=== PATIENT | female | born 1945 | race Caucasian/White ===

== ENCOUNTER → 2017-04-07 14:45 | Outpatient (POV) | payer MEDICARE, MEDICAID, SELFPAY | PROVIDERS: Visit Provider Physician Assistant | DX: Z00.00 Encounter for general adult medical examination without abnormal findings (principal) ==

== ENCOUNTER → 2017-05-23 10:22 | Outpatient (CLI) | payer MEDICARE, MEDICAID, SELFPAY | PROVIDERS: Visit Provider Physician Assistant | DX: R50.9 Fever, unspecified (principal); R61 Generalized hyperhidrosis | CPT/HCPCS: 87275; 87276 ==

== ENCOUNTER → 2017-12-23 14:47 | Outpatient (POV) | payer MEDICARE, MEDICAID, SELFPAY | PROVIDERS: PCP Family Medicine; Visit Provider Dermatology | DX: Z00.00 Encounter for general adult medical examination without abnormal findings (principal) ==

== ENCOUNTER → 2018-07-15 09:34 | Outpatient (CLI) | payer MEDICARE, MEDICAID, SELFPAY ==
--- NOTE | 2018-07-15 09:39 | CA_ITS ---
PROCEDURE: 2-D M-mode and color Doppler study INDICATIONS FOR THE TEST: Chest pain COPD Heart Murmur Tobacco Smoking Palpitations Fatigue Syncope Edema Hypertension+Diabetes Mellitus+ Rheumatic Fever SOB REDMAN Obesity Hyperlipidemia+ Family History HD Additional History abn ekg,cad PATIENT INFORMATION HEIGHT: 62 WEIGHT:142 GENDER: Female B/P:105/59 2-D/M-MODE INTERPRETATION: 2-D MEASUREMENTS OBSERVED VALUES IN CMS Right Ventricular Dimension (RVDd) 1.4 Interventricular Septum (Thickness)(IVsd) 0.9 Left Ventricular Internal Dimensions(LVIDd) 5.7 Left Ventricular Posterior Wall (Thickness)(LVPWd) 0.8 Aortic Root 2.5 Aortic Cusp Separation 1.8 Left Atrial Dimensions (LAD) 3.5 2D 1. Left Atrium is mildly enlarged, left ventricle is normal size, mild concentric left ventricular hypertrophy, visually estimated ejection fraction 55% with no regional wall motion abnormality. 2. The right atrium is mildly enlarged, left ventricle is normal size and contractility. 3. The aortic valve is minimally thickened and fibrosed. 4. The mitral and tricuspid valve leaflets are minimally thickened. 5. The pulmonic valve is poorly present. 6. No significant pericardial effusion noted. DOPPLER INTERROGATION: Doppler interrogation of the aortic, mitral and tricuspid valvular presence of mild mitral and tricuspid regurgitation, tricuspid regurgitation jet velocity is inadequate for calculation of the right ventricular systolic pressure, grade 1 diastolic dysfunction seen with tissue Doppler evidence of raised left atrial pressure. CONCLUSION: 1. Mild biatrial enlargement, normal left ventricular size, mild concentric left ventricular hypertrophy, visually estimated ejection fraction 55% with no regional wall motion abnormality, grade 1 diastolic dysfunction seen with tissue Doppler evidence of raised left atrial pressure. 2. Mild mitral and tricuspid regurgitation 3. No significant pericardial effusion noted.
--- NOTE | 2018-07-15 10:09 | NM_ITS ---
CARDIOLITE SPECT MYOCARDIAL PERFUSION LEXISCAN, REST AND STRESS: [facility] REVIEW QGS EF AND WALL MOTION EVALUATION: QPS - PERFUSION EVALUATION HISTORY: ABNORMAL EKG DOSE: 10.48 mCi technetium 99m mibi intravenously at rest followed by 32.8 mCi technetium 99m mibi following the intravenous ministration of 0.4 mg of Lexiscan. Resting blood pressure is 150/82. Stress blood pressure 129/72. FINDINGS: Ejection fraction is calculated to be 81% Uniform myocardial activity with both stress and rest gated images calculated ejection fraction of 81% with hyperdynamic wall motion IMPRESSION: No scintigraphic evidence of Lexiscan-induced myocardial ischemia normal ejection fraction normal wall motion
--- NOTE | 2018-07-15 12:25 | HMH.ITSHM ---
Current Home Medications as stated by this patient Judi Silver or education courses sales representative. []RIVAROXABAN RANITIDINE METFORMIN LOSARTAN HYDROCODONE FUROSEMIDE HYDROCHLOROTHIAZIDE GABAPENTIN DILTIAZEM VITAMIN D3 CETIRIZINE ATORVASTATIN
== END ==
PROVIDERS: PCP Family Medicine; Visit Provider Internal Medicine
DX: R94.31 Abnormal electrocardiogram [ECG] [EKG]; E11.8 Type 2 diabetes mellitus with unspecified complications; E78.49 Other hyperlipidemia; I11.9 Hypertensive heart disease without heart failure; I20.9 Angina pectoris, unspecified; I48.0 Paroxysmal atrial fibrillation; Z79.84 Long term (current) use of oral hypoglycemic drugs
CPT/HCPCS: 78452; 93017; 93306; A9502; J2785

== ENCOUNTER → 2019-01-06 13:43 | Outpatient (CLI) | payer MEDICARE, MEDICAID, SELFPAY ==
[2019-01-06 14:37] LABS: Basophils % 0.3 % (0.1-2.0); Eosinophils # 0.1 K/mm3 (0.0-0.4); Hematocrit 42.3 % (37.0-47.0); Hemoglobin 12.8 g/dL (12.2-16.2); Lymphocytes # 1.3 K/mm3 (0.7-4.5); Lymphocytes % 22.2 % (10-50); Mean Corpuscular HGB Conc 30.3 g/dL (31.8-35.4); Mean Corpuscular Hemoglobin 26.4 pg (27.0-31.2); Mean Corpuscular Volume 87.1 fl (81-99); Mean Platelet Volume 8.4 fl (7.4-10.4); Monocytes # 0.4 K/mm3 (0.1-1.0); Neutrophils # 4.3 K/mm3 (1.8-7.8); Neutrophils % 70.5 % (37.0-80.0); Platelet Count 215 K/mm3 (142-424); Red Blood Count 4.85 M/mm3 (4.20-5.40); Red Cell Distribution Width 16.3 % (11.5-17.5)
[2019-01-06 15:42] LABS: Anion Gap 11.9 mEq/L (5-15); Blood Urea Nitrogen 22 mg/dL (7-18); Calcium 9.3 mg/dL (8.5-10.1); Carbon Dioxide 34 mmol/L (21.0-32.0); Chloride 99 mmol/L (98-107); Creatinine,Serum 0.99 mg/dL (0.55-1.02); Estimated Glomerular Filt Rate 55 ml/min (>60); GFR (African American) 67 ML/MIN (>60); Glucose 164 mg/dL (74-106); Sodium 142 mmol/L (136-145)
[2019-01-06 15:51] LABS: Potassium 2.9 mmoL/L (3.5-5.1)
== END ==
PROVIDERS: Visit Provider Nurse Practitioner Family
DX: I48.0 Paroxysmal atrial fibrillation (principal); E11.8 Type 2 diabetes mellitus with unspecified complications; I25.10 Atherosclerotic heart disease of native coronary artery without angina pectoris; R94.31 Abnormal electrocardiogram [ECG] [EKG]; E78.49 Other hyperlipidemia; Z79.84 Long term (current) use of oral hypoglycemic drugs
CPT/HCPCS: 36415; 80048; 85025

== ENCOUNTER → 2019-01-14 13:54 | Outpatient (CLI) | payer MEDICARE, MEDICAID, SELFPAY ==
[2019-01-14 15:30] LABS: Anion Gap 13.3 mEq/L (5-15); Blood Urea Nitrogen 39 mg/dL (7-18); Carbon Dioxide 32 mmol/L (21.0-32.0); Chloride 100 mmol/L (98-107); Creatinine,Serum 1.47 mg/dL (0.55-1.02); Estimated Glomerular Filt Rate 35 ml/min (>60); GFR (African American) 42 ML/MIN (>60); Glucose 95 mg/dL (74-106); Potassium 4.3 mmoL/L (3.5-5.1); Sodium 141 mmol/L (136-145)
== END ==
PROVIDERS: Visit Provider Nurse Practitioner Family
DX: E11.9 Type 2 diabetes mellitus without complications (principal); E78.2 Mixed hyperlipidemia; E87.6 Hypokalemia; I25.10 Atherosclerotic heart disease of native coronary artery without angina pectoris; I48.0 Paroxysmal atrial fibrillation; Z79.84 Long term (current) use of oral hypoglycemic drugs
CPT/HCPCS: 36415; 80048

== ENCOUNTER → 2019-07-27 15:17 | Outpatient (POV) | payer MEDICARE, MEDICAID, SELFPAY | PROVIDERS: Visit Provider Physician Assistant | DX: Z00.00 Encounter for general adult medical examination without abnormal findings (principal) ==

== ENCOUNTER 2020-12-18 16:43 | Emergency (ER) | payer MEDICARE, MEDICAID, SELFPAY ==
[2020-12-18 16:43] VITALS: BP 155/78; PULSE 67; RESP 20; TEMP 36.4; O2SAT 93; BMI 27.1
--- NOTE | 2020-12-18 16:46 | CT_ITS ---
PROCEDURE INFORMATION: Exam: CT Angiography Head With Contrast, Arteriography Exam date and time: 12/18/20 04:46 PM Age: 75 years old Clinical indication: Dizziness and giddiness and headache and weakness; Patient HX: Weakness, dizzy, headache // nonsmoker TECHNIQUE: Imaging protocol: Computed tomography angiography of the head with contrast. Exam focused on the arteries. 3D rendering (Not supervised by radiologist): MIP and/or 3D reconstructed images were created by the technologist. Radiation optimization: All CT scans at this facility use at least one of these dose optimization techniques: automated exposure control; mA and/or kV adjustment per patient size (includes targeted exams where dose is matched to clinical indication); or iterative reconstruction. Contrast material: ISOVUE 370; Contrast volume: 100 ml; Contrast route: INTRAVENOUS (IV); COMPARISON: CT HEAD/BRAIN WO CON 12/18/20 06:09 PM FINDINGS: ANTERIOR CIRCULATION: Right internal carotid artery: Unremarkable. Intracranial segment is patent with no significant stenosis. No aneurysm. Right middle cerebral artery: Unremarkable. No occlusion or significant stenosis. No aneurysm. Right anterior cerebral artery: Unremarkable. No occlusion or significant stenosis. No aneurysm. Left internal carotid artery: Unremarkable. Intracranial segment is patent with no significant stenosis. No aneurysm. Left middle cerebral artery: Unremarkable. No occlusion or significant stenosis. No aneurysm. Left anterior cerebral artery: Unremarkable. No occlusion or significant stenosis. No aneurysm. POSTERIOR CIRCULATION: Right vertebral artery: Unremarkable. No occlusion or significant stenosis. No aneurysm. Left vertebral artery: Unremarkable. No occlusion or significant stenosis. No aneurysm. Basilar artery: Unremarkable. No occlusion or significant stenosis. No aneurysm. Right posterior cerebral artery: Unremarkable. No occlusion or significant stenosis. No aneurysm. Left posterior cerebral artery: Unremarkable. No occlusion or significant stenosis. No aneurysm. Brain: No definite mass, mass effect, or midline shift. Cerebral ventricles: No ventriculomegaly. Bones/joints: Unremarkable. No acute fracture. Soft tissues: Unremarkable. IMPRESSION: No large vessel stenosis or occlusion.
--- NOTE | 2020-12-18 16:46 | XR_ITS ---
PROCEDURE INFORMATION: Exam: XR Chest Exam date and time: 12/18/20 04:46 PM Age: 75 years old Clinical indication: Patient HX: Cough weakness and dizzy -- ordered chest xray and also angio head and neck TECHNIQUE: Imaging protocol: XR of the chest. Views: 1 view. COMPARISON: CR CXR CHEST(2 VIEWS-NOT PORTABLE) 01/14/17 02:02 PM FINDINGS: Lungs: Unremarkable. No consolidation. Pleural spaces: Unremarkable. No pleural effusion. No pneumothorax. Heart/Mediastinum: Unremarkable. No cardiomegaly. Bones/joints: Unremarkable. IMPRESSION: No acute findings.
--- NOTE | 2020-12-18 16:46 | CT_ITS ---
PROCEDURE INFORMATION: Exam: CT Angiography Neck With Contrast Exam date and time: 12/18/20 04:46 PM Age: 75 years old Clinical indication: Dizziness and giddiness and headache and weakness; Patient HX: Weakness, dizzy, headache // nonsmoker TECHNIQUE: Imaging protocol: Computed tomography angiography of the neck with contrast. 3D rendering (Not supervised by radiologist): MIP and/or 3D reconstructed images were created by the technologist. Radiation optimization: All CT scans at this facility use at least one of these dose optimization techniques: automated exposure control; mA and/or kV adjustment per patient size (includes targeted exams where dose is matched to clinical indication); or iterative reconstruction. Contrast material: ISOVUE 370; Contrast volume: 100 ml; Contrast route: INTRAVENOUS (IV); COMPARISON: US CV/CAROTID DUPLEX 12/05/14 01:11 PM FINDINGS: Right common carotid artery: No stenosis. No dissection or occlusion. Right internal carotid artery: No stenosis of the extracranial segment. No dissection or occlusion. Right external carotid artery: No occlusion or stenosis of the origin. Left common carotid artery: No stenosis. No dissection or occlusion. Left internal carotid artery: No stenosis of the extracranial segment. No dissection or occlusion. Left external carotid artery: No occlusion or stenosis of the origin. Right vertebral artery: No stenosis. No dissection or occlusion. Left vertebral artery: No stenosis. No dissection or occlusion. Thyroid: 2.5 x 2.0 cm heterogeneous enhancing left thyroid mass. Thyroid sonogram with possible biopsy recommended. Soft tissues: Normal. No significant soft tissue swelling. Bones/joints: No acute fracture. IMPRESSION: No hemodynamically significant extracranial cerebrovascular stenosis detected. COMMENTS: Consistent with the [employer]'s Incidental Findings Committee white paper (J Am Norman Radiol 2015): In patients aged 35 years and older with an incidental thyroid nodule equal to or greater than 1.[address], MRI or extrathyroidal US, further evaluation with dedicated thyroid US is recommended for patients with normal life expectancy and without comorbidities. For smaller nodules without suspicious features, no further evaluation or follow up is recommended. REFERENCES: NASCET CRITERIA. The degree of internal carotid artery stenosis is based on NASCET criteria. Normal is no stenosis. Mild is less than 50% stenosis. Moderate is 50-69% stenosis. Severe is 70% to 99% stenosis. Total occlusion is no detectable patent lumen.
--- NOTE | 2020-12-18 17:08 | ECG_ITS ---
APPROVED REPORT Exam: Resting ECG HR:62 bpm ECG Measurements Heart Rate 62 AXES NM 178 P 89 QRSd 84 QRS 8 QT 438 T 54 QTc 444 Conclusion Normal sinus rhythm Low voltage QRS Abnormal ECG Electronically signed by : Benigno Yanez MD 12/20/2020 21:09:44
[2020-12-18 17:17] LABS: Basophils % 0.4 % (0.1-2.0); Eosinophils # 0.1 K/mm3 (0.0-0.4); Hemoglobin 13.7 g/dL (12.2-16.2); Lymphocytes # 1.3 K/mm3 (0.7-4.5); Lymphocytes % 26.1 % (10-50); Mean Corpuscular HGB Conc 32.7 g/dL (31.8-35.4); Mean Corpuscular Hemoglobin 28.5 pg (27.0-31.2); Mean Corpuscular Volume 87.2 fl (81-99); Mean Platelet Volume 8.8 fl (7.4-10.4); Monocytes # 0.3 K/mm3 (0.1-1.0); Monocytes % 6.2 % (1.7-9.3); Neutrophils # 3.3 K/mm3 (1.8-7.8); Neutrophils % 66.2 % (37.0-80.0); Platelet Count 179 K/mm3 (142-424); Red Blood Count 4.81 M/mm3 (4.20-5.40); Red Cell Distribution Width 15.4 % (11.5-17.5); White Blood Count 4.9 K/mm3 (4.8-10.8)
[2020-12-18 17:23] LABS: Anion Gap 10.4 mEq/L (5-15); Blood Urea Nitrogen 18 mg/dl (7-17); Calcium 9.3 mg/dl (8.4-10.2); Carbon Dioxide 30 mmol/L (22.0-30.0); Chloride 103 mmol/L (98-107); Creatinine Clearance Estimated 52 mL/min (50-200); Estimated Glomerular Filt Rate 54 ml/min (>60); GFR (African American) 66 ML/MIN (>60); Glucose 124 mg/dl (74-100); Potassium 3.4 mmoL/L (3.5-5.1); Sodium 140 mmol/L (136-145)
[2020-12-18 17:47] LABS: Microscopic, Urine URINE MICROSCOPIC (MICROSCOPIC)
[2020-12-18 17:48] LABS: Appearance,Urine CLEAR (Clear); Bilirubin,Urine Negative (Negative); Blood, Urine Negative (Negative); Color,Urine YELLOW (Yellow); Glucose,Urine (UA) Negative (Negative); Ketones,Urine Negative (Negative); Leukocyte Esterase,Urine Negative (Negative); Nitrate,Urine Negative (Negative); Protein,Urine TRACE (Negative); Urobilinogen,Urine 0.2 EU/dl (0.2)
[2020-12-18 17:54] LABS: Thyroid Stimulating Hormone 5.21 uIU/mL (0.465-4.68)
[2020-12-18 18:02] LABS: Bacteria,Urine Trace /lpf; Squamous Epithelial Cell,Urine Occasional #/hpf (0-5)
--- NOTE | 2020-12-18 18:04 | CT_ITS ---
PROCEDURE INFORMATION: Exam: CT Head Without Contrast Exam date and time: 12/18/20 06:04 PM Age: 75 years old Clinical indication: Dizziness; Patient HX: Weakness, dizzy, headache // nonsmoker; Additional info: BURRELL TECHNIQUE: Imaging protocol: Computed tomography of the head without contrast. 3D rendering (Not supervised by radiologist): MIP and/or 3D reconstructed images were created by the technologist. Radiation optimization: All CT scans at this facility use at least one of these dose optimization techniques: automated exposure control; mA and/or kV adjustment per patient size (includes targeted exams where dose is matched to clinical indication); or iterative reconstruction. COMPARISON: No relevant prior studies available. FINDINGS: Brain: Normal. No hemorrhage. Unremarkable white matter. No mass effect. Cerebral ventricles: No ventriculomegaly. Paranasal sinuses: Visualized sinuses are unremarkable. No fluid levels. Mastoid air cells: Visualized mastoid air cells are well aerated. Bones/joints: Unremarkable. No acute fracture. Soft tissues: Unremarkable. IMPRESSION: No acute intracranial abnormality.
--- NOTE | 2020-12-18 18:46 | HMH.EDAMS ---
ED Disposition Clinical Impression: Altered mental status Qualifiers: Altered mental status type: disorientation Qualified Code(s): R41.0 - Disorientation, unspecified Disposition: Home, Self-Care Condition on Discharge: Good Instructions: DI for Altered Mental Status Referrals: Elver Weinberg MD [Primary Care Provider] - - Critical Care Critical Care Time: No Attestation: On 12/18/20, the high probability of a clinically significant, sudden or life threatening deterioration of the following system(s) required my full and direct attention, intervention and personal management. The time I documented below is in addition to time spent performing reported procedures but includes the following listed in this critical care notation. Medical Decision Making - Medical Records Medical records reviewed: Yes: I reviewed the patient's medical records. - Geraldo Inquiry Pt receiving controlled substance: No Vital Signs: 12/18/20 16:43 Temperature 97.5 F L Temperature Source Oral Pulse Rate [Left Radial] 67 Respiratory Rate 20 Blood Pressure [Right Arm] 155/78 H Blood Pressure Mean [Right Arm] 103 Blood Pressure Source [Right Arm] Automatic Cuff Blood Pressure Position [Right Arm] Sitting 02 Sat by Pulse Oximetry 93 L Oxygen Delivery Method Room Air - Lab Data Lab Results 12/18/20 16:55: WBC 4.9, RBC 4.81, Hgb 13.7, Hct 42.0, MCV 87.2, MCH 28.5, MCHC 32.7, RDW 15.4, Plt Count 179, MPV 8.8, Neut % (Auto) 66.2, Lymph % (Auto) 26.1, [place] % (Auto) 6.2, Eos % (Auto) 1.0, Baso % (Auto) 0.4, Neut # (Auto) 3.3, Lymph # (Auto) 1.3, [place] # (Auto) 0.3, Eos # (Auto) 0.1, Baso # (Auto) 0.0 12/18/20 16:55: Sodium 140, Potassium 3.4 L, Chloride 103, Carbon Dioxide 30, Anion Gap 10.4, BUN 18 H, Creatinine 1.00, Estimated Creat Clear 52, Estimated GFR 54 L, Est GFR ( Amer) 66, Glucose 124 H, Calcium 9.3, TSH 5.21 H 12/18/20 17:29: Urine Color Yellow, Urine Appearance Clear, Urine pH 7.0, Ur Specific [place] 1.020, Urine Protein Trace, Urine Glucose (UA) Negative, Urine Ketones Negative, Urine Blood Negative, Urine Nitrate Negative, Urine Bilirubin Negative, Urine Urobilinogen 0.2, Ur Leukocyte Esterase Negative, Urine RBC None, Urine WBC None, Ur Squamous Epith Cells Occasional, Urine Bacteria Trace Result diagrams: 12/18/20 16:55 12/18/20 16:55 Orders (Tests/Meds): ED MEDICATIONS Discontinued Medications Generic Name Dose Route Start Last Admin Trade Name Melissa PRN Reason Stop Dose Admin Iopamidol 100 ml 12/18/20 18:27 12/18/20 18:28 Iopamidol-370 (76%);100ml Bottle IV 12/18/20 18:28 100 ml ONCE ONE Administration Sodium Chloride 10 ml 12/18/20 18:27 12/18/20 18:28 Sodium Chloride 0.9% 10ml Syr (Rad Only) IV 12/18/20 18:28 10 ml ONCE ONE Administration - Radiology Data #1 Image(s): Chest Image Reviewed: Yes I reviewed the patient's radiology results, Yes I reviewed the patient's radiology image, Yes I have reviewed radiologist's interpretation Preliminary Findings: Normal/NAD - CT Data CT Scan: Head, C-Spine Time Received: 19:[address] Reviewed: Yes: I have reviewed the patient's CT results, I have viewed the radiologist's interpretation Findings Narrative: IMPRESSION: No large vessel stenosis or occlusion. IMPRESSION: No hemodynamically significant extracranial cerebrovascular stenosis detected. - ECG Data Tracing #1 I reviewed this ECG and interpreted as documented below: Normal jugular rate is 62 bpm, PA interval 170 ms, normal QTC. Sinus rhythm with nonspecific changes. ECG initial impression date: 12/18/20 ECG initial impression time: 17:08 - Reevaluation(s) Time: 19:13 Reevaluation #1: On reevaluation, patient appears to be at baseline. CTA was unremarkable for any occlusion or subarachnoid. Patient appears to have a transient amnestic event. There is no evidence of any further changes. Repeat neurologic exam is normal. Patient will follow
[2020-12-18 19:26] VITALS: BP 157/80; PULSE 73; RESP 15; TEMP 36.8; O2SAT 98
== END 2020-12-18 19:28 | disposition home or self-care (01) ==
PROVIDERS: Emergency Provider Emergency Medicine; PCP Family Medicine
DX: R41.0 Disorientation, unspecified (principal); E11.65 Type 2 diabetes mellitus with hyperglycemia; J44.9 Chronic obstructive pulmonary disease, unspecified; I48.0 Paroxysmal atrial fibrillation; I10 Essential (primary) hypertension; E78.5 Hyperlipidemia, unspecified; Z79.899 Other long term (current) drug therapy
CPT/HCPCS: 70450; 70496; 70498; 71045; 80048; 81001; 84443; 85025; 93005; 99283; Q9967

== ENCOUNTER → 2020-12-21 12:25 | Outpatient (CLI) | payer MEDICARE, MEDICAID, SELFPAY | PROVIDERS: PCP Family Medicine; Visit Provider Internal Medicine Cardiovascular Disease | DX: I48.0 Paroxysmal atrial fibrillation (principal) | CPT/HCPCS: 93225 ==

== ENCOUNTER → 2020-12-26 14:13 | Outpatient (CLI) | payer MEDICARE, MEDICAID, SELFPAY ==
--- NOTE | 2020-12-26 14:16 | CA_ITS ---
APPROVED REPORT EXAM: Comprehensive 2D, Doppler, and color-flow Echocardiogram Senior Product Integrity Engineer: Marya Cortez RDCS Ht: 5 ft 2 in Wt: 146lbs BSA: 1.67 BP: 170/82 mmHg Indications: TIA,AF,DO,HTN,HLP 2D Dimensions LVOT 1.91 cm (M/F) 1.5-2.5 M-Mode Dimensions RVDd 1.29 cm (0.9-2.6) LA Diam 3.19 cm (1.9-4.0) LVDd 5.12 cm (3.5-5.7) Ao Diam 3.07 cm (2.0-3.7) LVDs 3.38 cm (3.5-5.7) IVSd 1.17 cm (0.6-1.1) PWd 0.85 cm (0.6-1.1) EF (Teich) 62.50% FS 34.00% EDV (Teich) 124.90 mL TAPSE 2.30 (<1.7) ESV (Teich) 46.80 mL LV Diastology E Decel Time 240.00 (160-240 msec) E/A Ratio 0.9 MED E' 5.00 (< 7 cm/sec) E'/MED E' Ratio 16.92 (>14) LAT E' 5.20 (<10 cm/sec) E/LAT E' Ratio 16.27 (>14) Mitral Valve MV E Max Zechariah. 85.00 (40-130 cm/s) MV A Velocity 98.00 (40-130 cm/s) E/A Ratio 0.86 MV Decel. Time 240.00 (160-240 ms) MV PHT 70.00 ms Left Ventricle Left atrium is mildly enlarged, left ventricle is normal size, mild concentric left ventricular hypertrophy, visually estimated ejection fraction 55% with no regional wall motion abnormality, grade 1 diastolic dysfunction seen with tissue Doppler evidence of raise left atrial pressure. Right Ventricle Right atrium and right ventricle are normal size and contractility. Aortic Valve Aortic valve is minimally thickened and calcified without aortic stenosis or aortic insufficiency. Mitral Valve Mitral valve leaflets are minimally thickened, there is mild mitral regurgitation. Tricuspid Valve Tricuspid valve grossly normal, there is mild tricuspid regurgitation, tricuspid regurgitation jet velocity is inadequate for calculation of the right ventricular systolic pressure. Pulmonic Valve Pulmonic valve is poorly visualized. Great Vessels Aortic root is normal size. Inferior vena cava is normal size with normal inspiratory collapse. Pericardium No significant pericardial effusion noted Conclusion 1. Mildly enlarged left atrium, normal left ventricular size, mild concentric left ventricular hypertrophy, visually estimated ejection fraction 55% with no regional wall motion abnormality, grade 1 diastolic dysfunction seen with tissue Doppler evidence of raise left atrial pressure. 2. Mild mitral and tricuspid regurgitation. 3. No significant pericardial effusion noted. 4. Inferior vena cava is normal size with normal inspiratory collapse. Electronically signed by : Rafael Link MD 12/26/2020 22:23:07
--- NOTE | 2020-12-26 14:17 | CA_ITS ---
APPROVED REPORT Architectural Project Captain: MARIANNE Laterality: Bilateral Study Quality: Good Indications: TIA,AF,HTN,HLP,DM Doppler Spectral Velocity Analysis dICA (R) 80.00/15.70 cm/s dICA (L) 67.40/14.90 cm/s Brittney (R) 46.70/13.70 cm/s Brittney (L) 49.80/16.10 cm/s pICA (R) 48.20/10.50 cm/s pICA (L) 37.30/12.50 cm/s dCCA (R) 57.70/13.40 cm/s dCCA (L) 34.80/9.10 cm/s pCCA (R) 85.40/11.80 cm/s pCCA (L) 74.20/13.30 cm/s Vert (R) 39.00/10.30 cm/s Vert (L) 27.60/7.30 cm/s ICA/CCA 1.40 ICA/CCA 1.90 Findings Duplex evaluation demonstrates stenosis of the right proximal internal carotid artery <20% with PSV <140 cm/sec, EDV <100 cm/sec, and IC/CC Ratio <4.0.Duplex evaluation demonstrates stenosis of the left proximal internal carotid artery <20% with PSV <140 cm/sec, EDV <100 cm/sec, and IC/CC Ratio <4.0. Antegrade flow seen bilateral vertebral arteries. Conclusion Duplex evaluation demonstrates stenosis of the right proximal internal carotid artery <20% with PSV <140 cm/sec, EDV <100 cm/sec, and IC/CC Ratio <4.0.Duplex evaluation demonstrates stenosis of the left proximal internal carotid artery <20% with PSV <140 cm/sec, EDV <100 cm/sec, and IC/CC Ratio <4.0. Antegrade flow seen bilateral vertebral arteries. Electronically signed by : José Antonio Braswell MD 12/26/2020 18:00:40
== END ==
PROVIDERS: PCP Family Medicine; Visit Provider Family Medicine
DX: I65.23 Occlusion and stenosis of bilateral carotid arteries; I48.0 Paroxysmal atrial fibrillation
CPT/HCPCS: 93306; 93880

== ENCOUNTER → 2021-02-06 07:32 | Outpatient (CLI) | payer MEDICARE, MEDICAID, SELFPAY ==
--- NOTE | 2021-02-06 07:33 | CA_ITS ---
APPROVED REPORT Zinc Furnace Charger: MATTHEW Study Quality: Good Indications: htn Risk Factors Hypertension TIA/CVA History Renal Artery Doppler Origin (R) 130.0/ cm/sec Proximal (R) 93.4/ cm/sec Mid (R) 88.6/ cm/sec Distal (R) 106.9/ cm/sec Renal Aorta Ratio (R) 1.88 Segmental A. (R) / cm/sec RI: 0.73 Segmental A. Sup (R) 28.0/7.0 cm/sec Segmental A. Mid (R) 31.0/9.0 cm/sec Segmental A. Inf (R) 36.0/8.0 cm/sec Origin (L) 210.9/ cm/sec Proximal (L) 148.0/ cm/sec Mid (L) 135.8/ cm/sec Distal (L) 79.4/ cm/sec Renal Aorta Ratio (L) 3.05 Segmental A. (L) / cm/sec RI: 0.70 Segmental A. Sup (L) 31.0/9.0 cm/sec Segmental A. Mid (L) 27.0/7.0 cm/sec Segmental A. Inf (L) 22.0/8.0 cm/sec Renal Measurements Kidney Size (R) 9.3x4.0 cm Cortical Thickness (R) 1.1 cm Kidney Size (L) 8.7x4.1 cm Cortical Thickness (L) 1.1 cm Findings An attempt was made to evaluate the abdominal aorta, the right and left renal arteries and kidneys, utilizing duplex ultrasonography and color flow doppler. This was a technically difficult and therefore limited exam due to the presence of bowel gas and abdominal movement with respiration. The proximal abdominal aorta is patent without significant stenoses or dilatations. Multiple cystic structure observed in bilateral kidneys, the largest 1.8cm in the right kidney Duplex evaluation demonstrates greater than 60% stenosis of the left renal artery with PSV greater than 180 cm/s and/or Renal/Aortic ratio (RAR) greater than 3.5. Duplex evaluation demonstrates less than 60% stenosis of the right renal artery with PSV less than 180 cm/s and/or Renal/Aortic ratio (RAR) less than 3.5. Conclusion Duplex evaluation demonstrates greater than 60% stenosis of the left renal artery with PSV greater than 180 cm/s and/or Renal/Aortic ratio (RAR) greater than 3.5. Duplex evaluation demonstrates less than 60% stenosis of the right renal artery with PSV less than 180 cm/s and/or Renal/Aortic ratio (RAR) less than 3.5. Electronically signed by : José Antonio Braswell MD 02/08/2021 17:22:16
== END ==
PROVIDERS: PCP Family Medicine; Visit Provider Physician Assistant
DX: I10 Essential (primary) hypertension (principal)
CPT/HCPCS: 93976

== ENCOUNTER → 2021-02-13 11:15 | Outpatient (CLI) | payer MEDICARE, MEDICAID, SELFPAY ==
[2021-02-13 11:49] LABS: Blood Urea Nitrogen 19 mg/dl (7-17); Estimated Glomerular Filt Rate 61 ml/min (>60); GFR (African American) 74 ML/MIN (>60)
== END ==
PROVIDERS: Visit Provider Urology
DX: E78.5 Hyperlipidemia, unspecified (principal); I11.9 Hypertensive heart disease without heart failure; I25.10 Atherosclerotic heart disease of native coronary artery without angina pectoris; I48.0 Paroxysmal atrial fibrillation; I48.91 Unspecified atrial fibrillation; R94.31 Abnormal electrocardiogram [ECG] [EKG]; Z87.19 Personal history of other diseases of the digestive system
CPT/HCPCS: 36415; 82565; 84520

== ENCOUNTER → 2021-02-22 10:28 | Outpatient (CLI) | payer MEDICARE, MEDICAID, SELFPAY ==
--- NOTE | 2021-02-22 10:34 | CT_ITS ---
Procedure: CT ANGIO ABDOMEN CLINICAL HISTORY: abnl renal arterial duplex COMPARISON: CT ABDPELW/O CT ABD PELVIS W/O CONTRAST from 04/12/2016 TECHNIQUE: IV Contrast: 100ml Isovue 370 Axial images obtained with sagittal and coronal reformats. All CT scans at the facility use one or more dose reduction, viz: automated exposure control, ma/kV adjustment per patient size (including targeted exams where dose is matched to indication, i.e. head), or iterative reconstruction technique. FINDINGS: No evidence of aortic aneurysm. Scattered calcific plaque is present within the aorta and its branches. No celiac stenosis. Calcific plaque is present within the branches of the celiac artery. Calcific plaque is present at the ostium of the SMA without significant stenosis. The NEHA is patent. Calcific plaque is present at the proximal aspect of both renal arteries. There is a high-grade stenosis of the ostium of the right renal artery. The exact degree of stenosis is difficult to calculate but is felt to be greater than 75 percent. No significant stenosis of the left renal artery. There is calcific plaque at the distal aorta and proximal left common iliac artery 20 percent stenosis. Stable 6 mm nodule in the subpleural region of the right lower lobe. Upper abdominal images show contracted gallbladder. There is bilateral renal cortical thinning 1.9 cm isodense nodule is present along the upper pole of the right kidney. This nodule is indeterminate. There is an additional indeterminate nodule along the posterior aspect of the right kidney at 1.4 cm. There is a small exophytic right renal cyst anteriorly at 5 mm and also 1 inferiorly at 6 mm. Exophytic cyst noted along the lower pole of the left kidney at 6 mm. IMPRESSION: 1. High-grade stenosis of the ostium of the right renal artery at approximately 75 percent. No left renal artery stenosis evident. 2. Two indeterminate nodules of the right kidney. Recommend ultrasound to determine if these are cystic or solid. If solid or indeterminate then MRI may be needed for further evaluation. Dictated by: José Antonio Braswell MD 02/26/2021 11:26 José Antonio Braswell MD in [facility] 02/26/2021 11:26
== END ==
PROVIDERS: PCP Family Medicine; Visit Provider Urology
DX: I25.10 Atherosclerotic heart disease of native coronary artery without angina pectoris; I11.9 Hypertensive heart disease without heart failure; I48.0 Paroxysmal atrial fibrillation; E78.5 Hyperlipidemia, unspecified; R93.429 Abnormal radiologic findings on diagnostic imaging of unspecified kidney; R94.31 Abnormal electrocardiogram [ECG] [EKG]; Z87.19 Personal history of other diseases of the digestive system
CPT/HCPCS: 74175; Q9967

== ENCOUNTER 2021-03-05 08:45 | Day surgery (SDC) | payer MEDICARE, MEDICAID, SELFPAY ==
[2021-03-05] VITALS (18 sets, daily range): BP systolic 110–185; BP diastolic 65–104; PULSE 66–84; RESP 16–18; TEMP 36.8; O2SAT 93–100; BMI 26.6
--- NOTE | 2021-03-05 07:13 | IR_ITS ---
APPROVED REPORT Patient Location: Outpatient PROCEDURES Bilateral selective renal angiography INDICATION Abnormal renal duplex, Renovascular hypertension Informed consent was obtained prior to the procedure. COMPLICATIONS None Estimated Blood Loss: Less than 10 mls TECHNIQUE 1% lidocaine used to anesthetize the right femoral groin. The right femoral artery was accessed via the Seldinger technique. A 4 Tamazight sheath was placed in the right femoral artery. The JR4 catheter was used to selectively intubate each renal artery. At the end of the diagnostic angiogram the patient was transferred to the postop holding area in stable condition for sheath removal. ANGIOGRAPHIC RESULTS Right renal artery singular normal Left renal artery singular normal IMPRESSION Normal renal arteries PLAN 1. Treatment of hypertension Electronically signed by : Billy Ovalles MD 03/09/2021 12:19:25
[2021-03-05 08:34] LABS: Coronavirus 19, PCR Not Detected (NotDetected); Influenza A, PCR Not Detected (NotDetected); Influenza B, PCR Not Detected (NotDetected)
[2021-03-05 08:45] LABS: Basophils % 0.6 % (0.1-2.0); Eosinophils # 0.1 K/mm3 (0.0-0.4); Eosinophils % 2.7 % (0.1-12.0); Hematocrit 43.2 % (37.0-47.0); Lymphocytes # 1.4 K/mm3 (0.7-4.5); Lymphocytes % 26.5 % (10-50); Mean Corpuscular HGB Conc 32.5 g/dL (31.8-35.4); Mean Corpuscular Hemoglobin 28.6 pg (27.0-31.2); Mean Corpuscular Volume 87.8 fl (81-99); Mean Platelet Volume 7.9 fl (7.4-10.4); Monocytes # 0.4 K/mm3 (0.1-1.0); Monocytes % 8.4 % (1.7-9.3); Neutrophils # 3.1 K/mm3 (1.8-7.8); Neutrophils % 61.9 % (37.0-80.0); Platelet Count 183 K/mm3 (142-424); Red Blood Count 4.92 M/mm3 (4.20-5.40); Red Cell Distribution Width 14.5 % (11.5-17.5); White Blood Count 5.1 K/mm3 (4.8-10.8)
[2021-03-05 08:49] LABS: Chloride 105 mmol/L (98-107); Sodium 144 mmol/L (136-145)
[2021-03-05 08:50] LABS: Potassium 4.6 mmoL/L (3.5-5.1)
[2021-03-05 08:52] LABS: Anion Gap 10.6 mEq/L (5-15); Blood Urea Nitrogen 17 mg/dl (7-17); Carbon Dioxide 33 mmol/L (22.0-30.0); Creatinine Clearance Estimated 52 mL/min (50-200); Estimated Glomerular Filt Rate 61 ml/min (>60); GFR (African American) 74 ML/MIN (>60)
[2021-03-05 08:53] LABS: Calcium 9.7 mg/dl (8.4-10.2); Glucose 110 mg/dl (74-100)
--- NOTE | 2021-03-05 10:11 | US_ITS ---
PROCEDURE: US KIDNEY CLINICAL INDICATION: R93.429 - Abnormal radiologic findings on diagnostic imag... COMPARISON: US CA RENAL ARTERY DUPLEX from 02/06/[address] ANGIO ABDOMEN from 02/22/2021 XA CL RENAL ANGIOGRAM BI from 03/05/2021 FINDINGS: The right kidney is [id number]. There are least 3 cyst in the right kidney 2 in the lower pole at 8 and 14 mm. Upper pole renal cyst is present at 1.8 cm corresponding to the abnormality noted on CT scan. The left kidney is [id number]. There is some cortical scarring. A 1 cm cyst is present in the upper pole. A 2nd 1 cm cyst is present in the upper pole. IMPRESSION: Bilateral renal cysts. No suspicious solid renal lesions are evident. Mild cortical scarring of the left kidney. No hydronephrosis. Dictated by: José Antonio Braswell MD 03/05/2021 13:37 José Antonio Braswell MD in [facility] 03/05/2021 13:37
[2021-03-05 16:47] LABS: POC Glucose,Bedside 192 (70-110)
== END 2021-03-05 16:48 | disposition home or self-care (01) ==
LOC: CATHLAB 08:46
PROVIDERS: PCP Family Medicine; Visit Provider Internal Medicine
DX: I15.0 Renovascular hypertension; R93.421 Abnormal radiologic findings on diagnostic imaging of right kidney; I10 Essential (primary) hypertension; N28.89 Other specified disorders of kidney and ureter; I48.91 Unspecified atrial fibrillation; E11.9 Type 2 diabetes mellitus without complications; E78.2 Mixed hyperlipidemia; I48.0 Paroxysmal atrial fibrillation; I65.23 Occlusion and stenosis of bilateral carotid arteries; I25.10 Atherosclerotic heart disease of native coronary artery without angina pectoris; R06.00 Dyspnea, unspecified; R93.422 Abnormal radiologic findings on diagnostic imaging of left kidney; Z79.84 Long term (current) use of oral hypoglycemic drugs; Z79.899 Other long term (current) drug therapy
CPT/HCPCS: 36252; 36415; 76770; 80048; 82962; 85025; 99152; C1725; C1769; C9803; J1644; J2405; Q9967; U0003; U0005

== ENCOUNTER → 2022-01-02 10:47 | Outpatient (CLI) | payer MEDICARE, MEDICAID, SELFPAY ==
[2022-01-02 19:57] LABS: Basophils % 0.5 % (0.1-2.0); Eosinophils # 0.1 K/mm3 (0.0-0.4); Eosinophils % 1.7 % (0.1-12.0); Hematocrit 43.6 % (37.0-47.0); Hemoglobin 13.9 g/dL (12.2-16.2); Lymphocytes # 1.8 K/mm3 (0.7-4.5); Lymphocytes % 24.8 % (10-50); Mean Corpuscular HGB Conc 31.9 g/dL (31.8-35.4); Mean Corpuscular Hemoglobin 27.4 pg (27.0-31.2); Mean Platelet Volume 11.3 fl (7.4-10.4); Monocytes # 0.6 K/mm3 (0.1-1.0); Neutrophils # 4.7 K/mm3 (1.8-7.8); Platelet Count 210 K/mm3 (142-424); Red Blood Count 5.07 M/mm3 (4.20-5.40); Red Cell Distribution Width 15.5 % (11.5-17.5); White Blood Count 7.3 K/mm3 (4.8-10.8)
[2022-01-02 20:03] LABS: Alanine Aminotransferase 21 U/L (12-78); Albumin/Globulin Ratio 1.5 (1.1-1.8); Alkaline Phosphatase 143 U/L (38-126); Anion Gap 15.5 mEq/L (5-15); Aspartate Amino Transferase 35 U/L (14-36); Bilirubin,Total 0.5 mg/dl (0.2-1.3); Blood Urea Nitrogen 27 mg/dl (7-17); Calcium 9.8 mg/dl (8.4-10.2); Carbon Dioxide 29 mmol/L (22.0-30.0); Chloride 99 mmol/L (98-107); Chol/HDL Ratio 5.2 (1-3.5); Cholesterol 300 mg/dl (140-200); Estimated Glomerular Filt Rate 61 ml/min (>60); GFR (African American) 74 ML/MIN (>60); Globulin 2.7 g/dL (1.3-3.2); Glucose 115 mg/dl (74-100); HDL Cholesterol 58 mg/dl (40-60); Potassium 4.5 mmoL/L (3.5-5.1); Sodium 139 mmol/L (136-145); Total Protein,Serum 6.7 g/dl (6.3-8.2); Triglycerides 269 mg/dl (30-150); VLDL Cholesterol 54 mg/dL (0-40)
[2022-01-02 20:13] LABS: Direct LDL Cholesterol 183.93 mg/dL (100-129)
[2022-01-02 20:33] LABS: Thyroid Stimulating Hormone 4.06 uIU/mL (0.465-4.68)
[2022-01-02 21:25] LABS: Hemoglobin A1C 6.4 % (4.0-6.0)
== END ==
PROVIDERS: PCP Family Medicine; Visit Provider Family Medicine
DX: I25.10 Atherosclerotic heart disease of native coronary artery without angina pectoris (principal); Z00.00 Encounter for general adult medical examination without abnormal findings; I10 Essential (primary) hypertension; E11.9 Type 2 diabetes mellitus without complications; R53.83 Other fatigue; Z79.84 Long term (current) use of oral hypoglycemic drugs
CPT/HCPCS: 80053; 80061; 83036; 84443; 85025

== ENCOUNTER → 2022-04-08 11:19 | Outpatient (CLI) | payer MEDICARE, MEDICAID, SELFPAY ==
[2022-04-08 18:25] LABS: Creatinine,Urine Random 21 mg/dL (Not Estab.)
[2022-04-08 18:28] LABS: Microalbumin/Creatinine Ratio 718.5
== END ==
PROVIDERS: PCP Family Medicine; Visit Provider Family Medicine
DX: E11.9 Type 2 diabetes mellitus without complications (principal); Z79.84 Long term (current) use of oral hypoglycemic drugs
CPT/HCPCS: 82043; 82570

== ENCOUNTER → 2022-07-09 16:59 | Outpatient (CLI) | payer MEDICARE, MEDICAID, SELFPAY ==
[2022-07-09 18:18] LABS: Benzodiazepines Screen,Urine Negative ng/ml (<200)
[2022-07-09 18:19] LABS: Amphetamine/Metha Screen,Urine Negative ng/ml (<1000); Barbiturates Screen,Urine Negative ng/ml (<200)
[2022-07-09 18:20] LABS: Cannabinoid Screen,Urine Negative ng/ml (<50)
[2022-07-09 18:21] LABS: Cocaine Screen,Urine Negative ng/ml (<300); Methadone Screen,Urine Negative ng/ml (<300)
[2022-07-09 18:22] LABS: Opiate Screen,Urine Positive ng/ml (<300)
[2022-07-09 18:23] LABS: Phencyclidine Screen,Urine Negative ng/ml (<25)
[2022-07-09 19:40] LABS: Creatinine,Urine Random 22 mg/dL (Not Estab.)
== END ==
PROVIDERS: PCP Family Medicine; Visit Provider Family Medicine
DX: E11.9 Type 2 diabetes mellitus without complications (principal); M54.2 Cervicalgia; Z79.84 Long term (current) use of oral hypoglycemic drugs
CPT/HCPCS: 80305; 82043; 82570

== ENCOUNTER → 2022-07-12 16:11 | Outpatient (CLI) | payer MEDICARE, MEDICAID, SELFPAY ==
[2022-07-12 17:04] LABS: Basophils % 0.5 % (0.1-2.0); Eosinophils # 0.1 K/mm3 (0.0-0.4); Eosinophils % 2.5 % (0.1-12.0); Hematocrit 45.8 % (37.0-47.0); Hemoglobin 14.8 g/dL (12.2-16.2); Lymphocytes # 1.7 K/mm3 (0.7-4.5); Lymphocytes % 35.3 % (10-50); Mean Corpuscular HGB Conc 32.3 g/dL (31.8-35.4); Mean Corpuscular Hemoglobin 27.6 pg (27.0-31.2); Mean Corpuscular Volume 85.6 fl (81-99); Mean Platelet Volume 11.6 fl (7.4-10.4); Monocytes # 0.5 K/mm3 (0.1-1.0); Monocytes % 9.9 % (1.7-9.3); Neutrophils # 2.5 K/mm3 (1.8-7.8); Neutrophils % 51.9 % (37.0-80.0); Platelet Count 162 K/mm3 (142-424); Red Blood Count 5.36 M/mm3 (4.20-5.40); Red Cell Distribution Width 15.4 % (11.5-17.5); White Blood Count 4.8 K/mm3 (4.8-10.8)
[2022-07-12 17:08] LABS: Alanine Aminotransferase 19 U/L (12-78); Albumin Level 3.8 g/dl (3.5-5.0); Albumin/Globulin Ratio 1.5 (1.1-1.8); Alkaline Phosphatase 98 U/L (38-126); Anion Gap 10.6 mEq/L (5-15); Aspartate Amino Transferase 34 U/L (14-36); Bilirubin,Total 0.5 mg/dl (0.2-1.3); Blood Urea Nitrogen 21 mg/dl (7-17); Calcium 8.7 mg/dl (8.4-10.2); Carbon Dioxide 28 mmol/L (22.0-30.0); Chloride 106 mmol/L (98-107); Chol/HDL Ratio 6.2 (1-3.5); Cholesterol 320 mg/dl (140-200); Estimated Glomerular Filt Rate 70 ml/min (>60); GFR (African American) 84 ML/MIN (>60); Globulin 2.5 g/dL (1.3-3.2); Glucose 118 mg/dl (74-100); HDL Cholesterol 52 mg/dl (40-60); Potassium 4.6 mmoL/L (3.5-5.1); Sodium 140 mmol/L (136-145); Total Protein,Serum 6.3 g/dl (6.3-8.2); Triglycerides 259 mg/dl (30-150); VLDL Cholesterol 52 mg/dL (0-40)
[2022-07-12 18:12] LABS: Hemoglobin A1C 6.6 % (4.0-6.0)
[2022-07-12 19:12] LABS: Direct LDL Cholesterol 185.98 mg/dL (100-129)
== END ==
PROVIDERS: PCP Family Medicine; Visit Provider Family Medicine
DX: E11.9 Type 2 diabetes mellitus without complications (principal); Z00.00 Encounter for general adult medical examination without abnormal findings; I10 Essential (primary) hypertension; Z79.84 Long term (current) use of oral hypoglycemic drugs
CPT/HCPCS: 80053; 80061; 83036; 85025

== ENCOUNTER → 2022-07-12 16:12 | Outpatient (CLI) | payer MEDICARE, MEDICAID, SELFPAY | PROVIDERS: PCP Family Medicine; Visit Provider Family Medicine | DX: I10 Essential (primary) hypertension (principal) ==

== ENCOUNTER → 2022-09-13 10:13 | Outpatient (CLI) | payer MEDICARE, MEDICAID, SELFPAY ==
[2022-09-12 15:33] LABS: Basophils % 0.4 % (0.1-2.0); Eosinophils # 0.1 K/mm3 (0.0-0.4); Eosinophils % 1.8 % (0.1-12.0); Hematocrit 42.9 % (37.0-47.0); Hemoglobin 14.1 g/dL (12.2-16.2); Lymphocytes # 1.9 K/mm3 (0.7-4.5); Lymphocytes % 27.9 % (10-50); Mean Corpuscular HGB Conc 32.9 g/dL (31.8-35.4); Mean Corpuscular Volume 82.2 fl (81-99); Mean Platelet Volume 9.6 fl (7.4-10.4); Monocytes # 0.5 K/mm3 (0.1-1.0); Monocytes % 7.4 % (1.7-9.3); Neutrophils # 4.2 K/mm3 (1.8-7.8); Neutrophils % 62.6 % (37.0-80.0); Platelet Count 180 K/mm3 (142-424); Red Blood Count 5.22 M/mm3 (4.20-5.40); Red Cell Distribution Width 14.9 % (11.5-17.5); White Blood Count 6.7 K/mm3 (4.8-10.8)
[2022-09-12 15:34] LABS: Chloride 98 mmol/L (98-107); Potassium 3.7 mmoL/L (3.5-5.1); Sodium 141 mmol/L (136-145)
[2022-09-12 15:36] LABS: Bilirubin,Unconjugated 0.3 mg/dL (0.0-1.1); Blood Urea Nitrogen 23 mg/dl (7-17); Estimated Glomerular Filt Rate 61 ml/min (>60); GFR (African American) 74 ML/MIN (>60)
[2022-09-12 15:37] LABS: Alanine Aminotransferase 21 U/L (12-78); Albumin Level 3.9 g/dl (3.5-5.0); Alkaline Phosphatase 114 U/L (38-126); Anion Gap 14.7 mEq/L (5-15); Aspartate Amino Transferase 29 U/L (14-36); Bilirubin,Indirect 0.2 mg/dL (0.0-0.9); Bilirubin,Total 0.2 mg/dl (0.2-1.3); Calcium 9.1 mg/dl (8.4-10.2); Carbon Dioxide 32 mmol/L (22.0-30.0); Glucose 96 mg/dl (74-100); Magnesium 1.8 mg/dl (1.6-2.3); Total Protein,Serum 6.8 g/dl (6.3-8.2)
[2022-09-12 15:38] LABS: HDL Cholesterol 48 mg/dl (40-60)
[2022-09-12 15:45] LABS: Chol/HDL Ratio 6.7 (1-3.5); Cholesterol 320 mg/dl (140-200); Triglycerides 658 mg/dl (30-150)
[2022-09-12 15:48] LABS: Direct LDL Cholesterol 157.58 mg/dL (100-129)
[2022-09-12 15:57] LABS: Free T4 (Free Thyroxine) 1.04 ng/dl (0.78-2.19)
[2022-09-12 16:11] LABS: Thyroid Stimulating Hormone 4.45 uIU/mL (0.465-4.68)
[2022-09-13 12:17] LABS: Hemoglobin A1C 6.7 % (4.0-6.0)
== END ==
PROVIDERS: Physician Assistant; Visit Provider Nurse Practitioner
DX: R06.00 Dyspnea, unspecified; E11.9 Type 2 diabetes mellitus without complications; E78.2 Mixed hyperlipidemia; I11.9 Hypertensive heart disease without heart failure; I15.0 Renovascular hypertension; I25.10 Atherosclerotic heart disease of native coronary artery without angina pectoris; I48.0 Paroxysmal atrial fibrillation; R29.810 Facial weakness; R41.3 Other amnesia; R47.81 Slurred speech; R94.31 Abnormal electrocardiogram [ECG] [EKG]; E78.1 Pure hyperglyceridemia; Z79.84 Long term (current) use of oral hypoglycemic drugs
CPT/HCPCS: 36415; 80048; 80061; 80076; 83036; 83735; 84439; 84443; 85025

== ENCOUNTER 2022-09-19 12:42 | Emergency (ER) | payer MEDICARE, MEDICAID, SELFPAY ==
--- NOTE | 2022-09-19 12:45 | XR_ITS ---
FINAL REPORT CLINICAL HISTORY: PAIN IN RIGHT FOOT FINDINGS: RIGHT FOOT SERIES Three views of the right foot were obtained. There is no acute fracture or dislocation. There are minimal degenerative changes. There is no soft tissue abnormality. IMPRESSION: Minimal degenerative changes. Reviewed, Interpreted and Dictated by Topher Whitney III, MD Transcribed by Lexus Espinoza Authenticated and [facility]
[2022-09-19 13:05] VITALS: BP 158/88; PULSE 64; RESP 18; TEMP 36.6; O2SAT 98; BMI 27.3
--- NOTE | 2022-09-19 13:17 | EXP.UTC ---
Discharge Plan Disposition Patient Disposition: Home, Self-Care Condition: Good Prescriptions Prescriptions: New colchicine 0.6 mg capsule 0.6 mg PO DIRECTED Qty: 3 0RF Rx Instructions: Take 2 capsules (1.2mg) now Wait one hour then take 1 (0.6mg) capsule No Action aspirin [Adult Low Dose Aspirin] 81 mg tablet,delayed release (DR/EC) 81 mg PO DAILY betamethasone dipropionate 0.05 % cream 1 applic topical BID azelastine 205.5 mcg (0.15 %) spray,non-aerosol 1 spray intranasal BID Qty: 30 2RF Rx Instructions: administer into each nostril All Day Allergy (cetirizine) 10 mg capsule 10 mg PO DAILY PRN cholecalciferol (vitamin D3) 25 mcg (1,000 unit) capsule 25 mcg PO DAILY furosemide 40 mg tablet See Rx Instructions .Route .COMPLEX Qty: 180 3RF Rx Instructions: Take 2 tablets by mouth once daily metformin 500 mg tablet 1,000 mg PO BID Qty: 360 1RF metoprolol succinate 50 mg tablet extended release 24 hr 50 mg PO BID Qty: 180 5RF Eliquis 5 mg tablet 5 mg PO BID Qty: 60 5RF valsartan 320 mg tablet 320 mg PO DAILY Qty: 30 3RF fluticasone propionate [Flonase Allergy Relief] 50 mcg/actuation spray,suspension 2 spray intranasal BID Qty: 16 3RF Rx Instructions: administer into each nostril atorvastatin 40 mg tablet 40 mg PO HS Qty: 30 3RF gabapentin 600 mg tablet 300 mg PO BID Qty: 30 3RF hydrocodone-acetaminophen 5-325 mg tablet 1 tab PO BID PRN (Reason: pain) Qty: 60 0RF icosapent ethyl [Vascepa] 1 gram capsule 2 g PO BID Qty: 120 4RF Referrals Follow up/Referrals: Constantine Garland MD [Primary Care Provider] - See instructions Activity Restrictions/Add. Instructions Additional Instructions/Restrictions: Take medication as prescribed Follow up with your Family Doctor if no improvement or any worsening of symptoms Return if needed Straight to ER if any life threatening symptoms Clinical Impressions Clinical Impression: Gout Instructions Patient Instructions: DI for Gout, Gout Discharge ED [place] [facility] [place] General Stated complaint: RT foot pain no known accident Mode of Arrival: Ambulatory Source of Information: Patient Limitations: No Limitations Time Seen by Provider: 09/19/22 13:17 Description of Symptoms (Recalled from Triage Doc. by RN): PATIENT C/O RIGHT FOOT PAIN SINCE YESTERDAY. NO KNOWN INJURY HEENT Symptoms (Recalled from RN notes): No Resp Symptoms (Recalled from RN notes): No Skin Symptoms (Recalled from RN notes): No MS Symptoms (Recalled from RN notes): Yes Functional Status (Recalled from RN notes): WNL History of Present Illness Provider Complaint: Patient states that she noticed she was having pain in the side of her right foot States that she hasnt done anything that she is aware of Daughter states that she has had gout before not sure if that what could be causing her pain now but they wanted to get her checked Related Data Home Medications Medication Instructions Recorded Confirmed aspirin 81 mg tablet,delayed 81 mg PO DAILY heart health 05/25/19 09/12/22 release (Adult Low Dose Aspirin) cetirizine 10 mg capsule (All Day 10 mg PO DAILY PRN 10/05/21 09/12/22 Allergy (cetirizine)) cholecalciferol (vitamin D3) 25 25 mcg PO DAILY 10/05/21 09/12/22 mcg (1,000 unit) capsule betamethasone dipropionate 0.05 % 1 applic topical BID 07/09/22 09/12/22 topical cream Previous Rx's Medication Instructions Recorded furosemide 40 mg tablet See Rx Instructions .Route 10/05/21 .COMPLEX Fluid #180 tabs metformin 500 mg tablet 1,000 mg PO BID diabetes #360 tabs 10/05/21 fluticasone propionate 50 2 spray intranasal BID allergies 04/02/22 mcg/actuation nasal #16 grams spray,suspension (Flonase Allergy Relief) atorvastatin 40 mg tablet 40 mg PO HS #30 tabs 07/16/22 azelastine 205.5 mcg (0.15 %) 1 spray intranasal BID allergy 07/16/22 nasal sp
[2022-09-19 13:51] LABS: Uric Acid 9.4 mg/dl (2.5-6.2)
[2022-09-19 14:08] VITALS: BP 158/88; PULSE 64; RESP 18; TEMP 36.6; O2SAT 98
== END 2022-09-19 14:13 | disposition home or self-care (01) ==
PROVIDERS: Emergency Provider Nurse Practitioner; PCP Family Medicine
DX: M10.071 Idiopathic gout, right ankle and foot (principal); M79.671 Pain in right foot; I25.10 Atherosclerotic heart disease of native coronary artery without angina pectoris; I11.9 Hypertensive heart disease without heart failure; I48.0 Paroxysmal atrial fibrillation; E11.9 Type 2 diabetes mellitus without complications; E78.5 Hyperlipidemia, unspecified; Z79.84 Long term (current) use of oral hypoglycemic drugs
CPT/HCPCS: 73630; 84550; 99204; 99212; G0463

== ENCOUNTER → 2022-11-11 10:14 | Outpatient (CLI) | payer MEDICARE, MEDICAID, SELFPAY ==
--- NOTE | 2022-11-11 10:53 | MR_ITS ---
FINAL REPORT CLINICAL HISTORY: memory loss/facial droop/slurred speech. dizziness. FINDINGS: Multiplanar MR imaging of the brain was performed without and with contrast. There are extensive changes of chronic microvascular ischemia in the periventricular and subcortical white matter. There is no evidence of intracranial hemorrhage or mass. No abnormal extra-axial fluid collection is seen. The ventricular size is within normal limits. There is no evidence of shift of the midline structures. The posterior fossa and brainstem have an unremarkable appearance. No area of abnormal restricted diffusion is identified. No abnormal contrast enhancement is seen. There is extensive abnormal signal throughout the left maxillary sinus, ethmoid air cells and left frontal sinus. IMPRESSION: No acute intracranial abnormality identified. Chronic microvascular ischemic change. Extensive abnormal signal throughout the left maxillary sinus, ethmoid air cells and left frontal sinus consistent with chronic sinusitis. Reviewed, Interpreted and Dictated by Stevie Umanzor MD Transcribed by Michell Arias Authenticated and [facility]
[2022-11-11 11:02] LABS: Blood Urea Nitrogen 21 mg/dl (7-17); Estimated Glomerular Filt Rate 54 ml/min (>60); GFR (African American) 65 ML/MIN (>60)
== END ==
PROVIDERS: PCP Family Medicine; Visit Provider Physician Assistant
DX: R29.810 Facial weakness (principal); R41.3 Other amnesia; R47.81 Slurred speech
CPT/HCPCS: 36415; 70553; 82565; 84520; A9576

== ENCOUNTER → 2022-11-12 10:34 | Outpatient (POV) | payer MEDICARE, MEDICAID, SELFPAY | PROVIDERS: Visit Provider Dermatology | DX: Z00.00 Encounter for general adult medical examination without abnormal findings (principal) ==

== ENCOUNTER → 2023-01-10 09:54 | Outpatient (CLI) | payer MEDICARE, MEDICAID, SELFPAY ==
[2023-01-10 10:23] LABS: MANUAL DIFFERENTIAL MANUAL DIFFERENTIAL (MANUAL DIFF)
[2023-01-10 10:40] LABS: Basophils % 0.5 % (0.1-2.0); Eosinophils # 0.1 K/mm3 (0.0-0.4); Eosinophils % 1.9 % (0.1-12.0); Hematocrit 41.4 % (37.0-47.0); Hemoglobin 14.2 g/dL (12.2-16.2); Lymphocytes # 1.5 K/mm3 (0.7-4.5); Lymphocytes % 23.2 % (10-50); Mean Corpuscular HGB Conc 34.2 g/dL (31.8-35.4); Mean Corpuscular Hemoglobin 29.4 pg (27.0-31.2); Mean Corpuscular Volume 86.2 fl (81-99); Monocytes # 0.5 K/mm3 (0.1-1.0); Monocytes % 7.5 % (1.7-9.3); Neutrophils # 4.2 K/mm3 (1.8-7.8); Neutrophils % 66.8 % (37.0-80.0); Platelet Count 152 K/mm3 (142-424); Red Blood Count 4.81 M/mm3 (4.20-5.40); White Blood Count 6.3 K/mm3 (4.8-10.8)
[2023-01-10 10:57] LABS: Lymphocytes % 25 % (10-50); Monocytes % 8 % (2-9); Neutrophils % 67 % (42-76); Platelet Estimate Normal; RBC Morphology Normal; Total Cells Counted 100
[2023-01-10 11:13] LABS: Cholesterol 240 mg/dl (140-200); HDL Cholesterol 48 mg/dl (40-60); Triglycerides 232 mg/dl (30-150); VLDL Cholesterol 46 mg/dL (0-40)
[2023-01-10 11:24] LABS: Direct LDL Cholesterol 129.57 mg/dL (100-129)
[2023-01-10 11:35] LABS: Hemoglobin A1C 6.5 % (4.0-6.0)
[2023-01-10 12:11] LABS: Alanine Aminotransferase 28 U/L (12-78); Albumin Level 4.1 g/dl (3.5-5.0); Albumin/Globulin Ratio 1.5 (1.1-1.8); Alkaline Phosphatase 92 U/L (38-126); Anion Gap 14.8 mEq/L (5-15); Aspartate Amino Transferase 35 U/L (14-36); Bilirubin,Total 0.5 mg/dl (0.2-1.3); Blood Urea Nitrogen 35 mg/dl (7-17); Calcium 9.6 mg/dl (8.4-10.2); Carbon Dioxide 32 mmol/L (22.0-30.0); Chloride 97 mmol/L (98-107); Estimated Glomerular Filt Rate 61 ml/min (>60); GFR (African American) 74 ML/MIN (>60); Globulin 2.7 g/dL (1.3-3.2); Glucose 119 mg/dl (74-100); Potassium 3.8 mmoL/L (3.5-5.1); Sodium 140 mmol/L (136-145); Total Protein,Serum 6.8 g/dl (6.3-8.2)
[2023-01-10 12:29] LABS: Free T4 (Free Thyroxine) 1.08 ng/dl (0.78-2.19)
[2023-01-10 12:41] LABS: Thyroid Stimulating Hormone 3.46 uIU/mL (0.465-4.68)
[2023-01-10 13:17] LABS: Vitamin B12 409 pg/mL (239-931)
== END ==
PROVIDERS: PCP Family Medicine; Visit Provider Specialist
DX: I48.0 Paroxysmal atrial fibrillation (principal); R41.3 Other amnesia; R47.81 Slurred speech; I11.9 Hypertensive heart disease without heart failure; I48.91 Unspecified atrial fibrillation; R42 Dizziness and giddiness; E11.9 Type 2 diabetes mellitus without complications; Z79.84 Long term (current) use of oral hypoglycemic drugs
CPT/HCPCS: 36415; 80053; 80061; 82607; 82746; 83036; 84439; 84443; 85007; 85014; 85018; 85048; 85049

== ENCOUNTER → 2023-02-04 09:54 | Outpatient (POV) | payer MEDICARE, MEDICAID, SELFPAY | PROVIDERS: PCP Family Medicine; Visit Provider Dermatology | DX: Z00.00 Encounter for general adult medical examination without abnormal findings (principal) ==

== ENCOUNTER 2023-05-28 11:33 | Outpatient (CLI) | payer MEDICARE, MEDICAID, SELFPAY ==
--- NOTE | 2023-05-28 11:34 | CT_ITS ---
APPROVED REPORT Windshield Repair Technician: CLINICAL INDICATION Chest Pain TECHNIQUE Image Acquisition: A 128 slice MDCT scanner (InTown[employer] View) was used for data acquisition. A noncontrast coronary calcium scan was performed. A CT attenuation threshold of 130 Hounsfield units (HU) was used for the detection of calcium in contiguous voxels of 1 sq mm in area to be counted as individual lesions. Bolus tracking in the ascending aorta with a threshold of 180 HU was performed. Immediately afterwards, ECG synchronized cardiac CT was then performed from the cardiac base to apex using retrospective gating with ECG tube current modulation. A total of 85 mL of Isovue 370 mg/mL contrast medium was administered at 5 mL/sec followed by a saline flush using a biphasic injection protocol. A tube voltage of 120 KVp was used. The patient received the following medications prior to the cardiac CT. 25 mg of oral metoprolol 0.8 mg of sublingual nitroglycerin The average heart rate at the time of acquisition was 56 bpm and regular. Image Reconstruction Transaxial images were reconstructed at 0.67 mm slide thickness. Data was reviewed interactively on an advanced workstation capable of 2 and 3-dimensional displays in all conventional reconstruction formats, including multiplanar reformations, maximum intensity projections, curved multiplanar reformations, and volume rendered reconstructions. When applicable, selected routine images describing the relevant coronary anatomy and pathology were saved and sent to PACS. Complications None Technical Quality Overall image quality was good. Coronary artery opacification was adequate. Total DLP (Dose-Length Product) is 1418.0 mGy-cm. The reported value represents the total of one or more individual components during the CT acquisition of this date and at this time, and as such, the same value may appear in more than one CT report depending on the interpreting/reporting physicians. COMPARISON None FINDINGS CT Coronary Calcium Scoring LMA (Left Main Artery) = 0 LAD (Left Anterior Descending) = 101 LCX (Left Coronary Circumflex) = 25 RCA (Right Coronary Artery) = 4 Total Calcium Score = 130 using the AJ-130 method. The observed calcium score of 130 is at 63rd percentile for subjects of the same age, sex, and race/ethnicity. The interpretation of the calcium heart score is based on the following continuum*: 0 = no calcified plaque detected (risk of coronary artery disease is very low ??? less than 5%) 1-10 = calcium detected in extremely minimal levels (risk of coronary diseases is still low ??? less than 10%) 11-100 = mild levels of plaque detected with certainty (mild or minimal narrowing of heart arteries is likely) 101-400 = definite,at least moderate levels of plaque detected (relatively high risk of a heart attack within 3-5 years) >401-999 = extensive levels of plaque detected (high risk of heart attack, high levels of vascular disease are present, high likelihood of at least one significant coronary narrowing) *The calcium heart score quantifies the burden of coronary calcification/plaque in the coronary arteries. The calcium heart score is not able to evaluate the presence or burden of non-calcified (i.e. soft) plaque. There is also presence of mild calcification in the aortic valve and mitral annulus, as well as in the transverse aorta and descending aorta. Coronary CT Angiography The coronary arterial system is right dominant. Quantitative Stenosis Grading: Left Main (LM): The left main originates normally from the left sinus of Valsalva. The LM bifurcates into the left anterior descending artery and left circumflex artery. The LM is patent with no evidence of atherosclerosis. Left Anterior Descending (LAD) and Diagonal Branches: The LAD gives off 4 diagonal branches. There is mixed calcified/noncalcified plaque in the proximal and mid LAD, with presence of moderate 50-70% luminal stenosis noted in the mid-LAD segment. There is no evidence of LAD-myocardial bridge. Left Circumflex (LCX) and Obtuse Marginals (OM): The LCX gives off 2 Obtuse Marginal (OM) branch(es). There is mild calcification in the proximal LCx with mild 25-49% luminal stenosis. Right Coronary Artery (RCA): The RCA originates normally from the right sinus of Valsalva. The RCA gives off a posterior descending artery (PDA) and posterolateral (PL) branches. There is 1 focus of calcified plaque in the proximal RCA, with no evidence of luminal stenosis. Non-Coronary Cardiac Findings: Analysis of the left ventricular (LV) structure and function was performed after 3-D reconstruction of the LV from axial images, with user-corrected automatic contouring for assessment of LV volumes and user-defined reconstruction from oblique planes for measurement of 3-D cardiac structure and function. -The left ventricle systolic function is normal. -There is no left atrial appendage filling defect. Two right pulmonary veins and two left pulmonary veins drain normally into the left atrium. -No pericardial thickening or calcification. -Central and branch pulmonary arteries in the [id number] are unremarkable. -Thoracic aorta within the visualized thoracic aortic-branches in the [id number] is unremarkable. Extracardiac Structures No significant extra-cardiac findings. Note, however, that this study is focused on the cardiac findings. IMPRESSION -Presence of coronary calcification with an Agatston score = 130 using the AJ-130 method. -The observed calcium score of 130 is at 63rd percentile for subjects of the same age, sex, and race/ethnicity. -Possible evidence of significant flow-limiting atherosclerosis in the mid-LAD segment. -CAD-RADS 3. Management recommendations per ACC/AHA guidelines*, as clinically appropriate. *Recommendations: CAD RADS 0: Reassurance. Consider non-atherosclerotic causes of chest pain. CAD RADS 1: Consider non-atherosclerotic causes of chest pain. Consider preventive therapy and risk factor modification. CAD RADS 2: Consider non-atherosclerotic causes of chest pain. Consider preventive therapy and risk factor modification, particularly for patients with nonobstructive plaque in multiple segments. CAD RADS 3: Consider further functional testing. Consider symptom-guided anti-ischemic and preventive pharmacotherapy as well as risk factor modification per published guideline statements. CAD RADS 4A: Consider further functional testing or invasive coronary angiography with revascularization per published guideline statements. Consider symptom-guided anti-ischemic and preventive pharmacotherapy as well as risk factor modification per published guideline statements. CAD RADS 4B: Invasive coronary angiography recommended with revascularization per published guideline statements. Consider symptom-guided anti-ischemic and preventive pharmacotherapy as well as risk factor modification per published guideline statements. CAD RADS 5: Consider invasive angiography and/or viability assessment with revascularization per published guideline statements. Consider symptom-guided anti-ischemic and preventive pharmacotherapy as well as risk factor modification per published guideline statements. CRITICAL RESULT None COMMUNICATION Per this written report The coronary and cardiac findings of this CCTA were reviewed, reported, and signed by Tyrone Rachel MD (Gis Programmer) Conclusion Electronically signed by : Jennifer Rachel MD 06/04/2023 12:25:44
[2023-05-28 11:46] VITALS: BMI 27.4
[2023-05-28 11:50] VITALS: BP 139/70; PULSE 66; RESP 18; TEMP 36.4; O2SAT 98
[2023-05-28] MEDS: METOPROLOL TARTRATE 25MG TABLET 25 MG (11:58)
[2023-05-28 12:11] LABS: POC Glucose,Bedside 237 (70-110)
[2023-05-28 12:20] LABS: Anion Gap 11.5 mEq/L (5-15); Blood Urea Nitrogen 37 mg/dl (7-17); Calcium 9.1 mg/dl (8.4-10.2); Carbon Dioxide 33 mmol/L (22.0-30.0); Chloride 99 mmol/L (98-107); Creatinine Clearance Estimated 47 mL/min (50-200); Estimated Glomerular Filt Rate 48 ml/min (>60); GFR (African American) 58 ML/MIN (>60); Glucose 256 mg/dl (74-100); Potassium 3.5 mmoL/L (3.5-5.1); Sodium 140 mmol/L (136-145)
[2023-05-28 12:48] VITALS: BP 156/74; PULSE 59; RESP 16; O2SAT 95
[2023-05-28 12:53] VITALS: BP 136/66; PULSE 59; RESP 16; O2SAT 95
[2023-05-28 13:00] VITALS: BP 129/71
[2023-05-28] MEDS: 0.9 % SODIUM CHLORIDE 50 ML VIAL IV (13:05)
[2023-05-28] MEDS: IOPAMIDOL-370 (76%);100ML BOTTLE 85 ML IV (13:05)
[2023-05-28] MEDS: SODIUM CHLORIDE 0.9% 10ML SYR (RAD ONLY) 10 ML IV (13:05)
[2023-05-28 13:06] VITALS: BP 121/77; PULSE 69; RESP 16; O2SAT 96
== END 2023-05-28 13:13 | disposition home or self-care (01) ==
PROVIDERS: PCP Family Medicine; Visit Provider Physician Assistant
DX: I25.10 Atherosclerotic heart disease of native coronary artery without angina pectoris (principal); R06.00 Dyspnea, unspecified; R42 Dizziness and giddiness; R94.31 Abnormal electrocardiogram [ECG] [EKG]; R07.9 Chest pain, unspecified; Z79.899 Other long term (current) drug therapy
CPT/HCPCS: 75571; 75574; 80048; 82962; Q9967

== ENCOUNTER 2023-07-11 10:34 | Emergency (ER) | payer MEDICARE, MEDICAID, SELFPAY ==
--- NOTE | 2023-07-11 10:44 | EXP.UTC ---
Discharge Plan Disposition Patient Disposition: Home, Self-Care Condition: Good Prescriptions Prescriptions: New prednisone 20 mg tablet 20 mg PO BID Qty: 10 0RF No Action betamethasone dipropionate 0.05 % cream 1 applic topical BID azelastine 137 mcg (0.1 %) aerosol,spray 1 spray intranasal BID Qty: 30 2RF Rx Instructions: administer into each nostril levocetirizine [Xyzal] 5 mg tablet 5 mg PO DAILY Qty: 30 2RF All Day Allergy (cetirizine) 10 mg capsule 10 mg PO DAILY PRN (Reason: allergies) cholecalciferol (vitamin D3) 25 mcg (1,000 unit) capsule 25 mcg PO DAILY Eliquis 5 mg tablet 5 mg PO BID Qty: 60 5RF valsartan 320 mg tablet 320 mg PO DAILY Qty: 30 2RF furosemide 40 mg tablet 40 mg PO DAILY Patient Comments: TAKE 1 TABLET BY MOUTH ONCE DAILY FOR FLUID carvedilol 12.5 mg tablet 12.5 mg PO DAILY metformin 500 mg tablet extended release 24 hr 1,000 mg PO BID Qty: 360 2RF atorvastatin 80 mg tablet See Rx Instructions .ROUTE .COMPLEX Qty: 90 3RF Dose Instruction: TAKE 1 TABLET BY MOUTH AT BEDTIME Rx Instructions: TAKE 1 TABLET BY MOUTH AT BEDTIME hydrocortisone 2.5 % cream 1 applic topical BID 7 Days Qty: 20 0RF Rx Instructions: Apply very thin layer to hemorrhoids twice daily for up to 1 week allopurinol 100 mg tablet 100 mg PO DAILY Qty: 90 3RF prednisone 50 mg tablet 50 mg PO DAILY Qty: 7 0RF (DME) Blood Glucose Test Strip See Rx Instructions .Route Qty: 50 2RF Rx Instructions: Bid prn fluticasone propionate [Flonase Allergy Relief] 50 mcg/actuation spray,suspension 2 spray intranasal BID Qty: 16 3RF Rx Instructions: administer into each nostril icosapent ethyl [Vascepa] 1 gram capsule 2 g PO BID Qty: 120 4RF Edarbyclor 40-25 mg tablet 1 tab PO DAILY Qty: 90 1RF Patient Comments: TAKE 1 TABLET BY MOUTH ONCE DAILY gabapentin 600 mg tablet 300 mg PO BID Qty: 30 3RF hydrocodone-acetaminophen 5-325 mg tablet 1 tab PO BID PRN (Reason: pain) Qty: 60 0RF Referrals Follow up/Referrals: Constantine Garland MD [Primary Care Provider] - See instructions Clinical Impressions Clinical Impression: Gout Instructions Patient Instructions: DI for Gout Discharge ED Provider: Leny Elizabeth [facility] [place] H[place] General Stated complaint: Pain, redness and swelling in R leg Time Seen by Provider: 07/11/23 11:20 History of Present Illness Provider Complaint: Pain and swelling in right foot X 3-4 days. H/O gout. Saw PCP yesterday - given Prednisone. No pharmacy in hometown had it. Called this am, told them pain and swelling were worse and radiating towards knee and advised she be seen here. Onset (ago): day(s) Location: right and lower extremity Radiation: non-radiation Relieving factors: none Exacerbating factors: none Associated symptoms: denies other symptoms Treatments prior to arrival: none Related Data Home Medications Medication Instructions Recorded Confirmed cetirizine 10 mg capsule (All Day 10 mg PO DAILY PRN allergies 10/05/21 07/10/23 Allergy (cetirizine)) cholecalciferol (vitamin D3) 25 25 mcg PO DAILY 10/05/21 07/10/23 mcg (1,000 unit) capsule betamethasone dipropionate 0.05 % 1 applic topical BID 07/09/22 07/10/23 topical cream furosemide 40 mg tablet 40 mg PO DAILY 02/10/23 07/10/23 carvedilol 12.5 mg tablet 12.5 mg PO DAILY 04/17/23 07/10/23 Previous Rx's Medication Instructions Recorded fluticasone propionate 50 2 spray intranasal BID allergies 04/02/22 mcg/actuation nasal #16 grams spray,suspension (Flonase Allergy Relief) apixaban 5 mg tablet (Eliquis) 5 mg PO BID #60 tabs 09/05/22 valsartan 320 mg tablet 320 mg PO DAILY #30 tabs 12/16/22 azelastine 137 mcg (0.1 %) nasal 1 spray intranasal BID #30 mL 02/19/23 spray aerosol levocetirizine 5 mg tablet (Xyzal) 5 mg PO DAILY #30 tabs 02/19/23 hydrocortisone 2.5 % topical cream 1 applic topical BID 1 week #20 03/27/23 grams atorvastatin 80 mg tablet See Rx Instructions .Route 04/17/23 .COMPLEX #90 tabs metformin 500 mg tablet,extended 1,000 mg (2 x 500 mg) PO BID #360 04/17/23 release 24 hr tabs Vascepa 1 gram capsule (icosapent 2 g (2 x 1 gram) PO BID #120 caps 04/18/23 ethyl) azilsartan medoxomil 40 1 tab PO DAILY #90 tabs 06/04/23 mg-chlorthalidone 25 mg tablet (Edarbyclor) gabapentin 600 mg tablet 300 mg (1/2 x 600 mg) PO BID nerve 07/03/23 pain #30 tabs hydrocodone 5 mg-acetaminophen 325 1 tab PO BID PRN pain #60 tabs 07/03/23 mg tablet allopurinol 100 mg tablet 100 mg PO DAILY #90 tabs 07/10/23 blood sugar diagnostic (Blood #50 ea 07/10/23 Glucose Test strips) prednisone 50 mg tablet 50 mg PO DAILY gout #7 tabs 07/10/23 prednisone 20 mg tablet 20 mg PO BID #10 tabs 07/11/23 Allergies Allergy/AdvReac Type Severity Reaction Status Date / Time codeine [CODEINE] Allergy Unknown Verified 07/10/23 11:36 [facility] Disclaimer: The information contained in this section may have been updated after the patient was seen, as this information can be updated by other users. Medical History Abnormal findings on diagnostic imaging of heart and coronary circulation Agatston CAC score 100-199 Chest pain Hemorrhoids Skin cancer Hearing loss Impacted cerumen of left ear Abnormal ear sensation Sinus bradycardia Malignant essential hypertension TMJ dysfunction Sinus drainage History of skin cancer H/O myocardial infarction, greater than 8 weeks Gout Malignant essential hypertension Nodule of kidney HTN (hypertension) History of rectal bleeding Altered mental status CAD (coronary artery disease) Dyspnea Atrial fibrillation Hyperlipidemia Coronary arteriosclerosis Diabetes mellitus Hypertensive heart disease without heart failure Paroxysmal atrial fibrillation Surgical History History of tubal ligation History of hysterectomy Family History Father Diabetes Coronary artery disease Social History Smoking Status: Former smoker alcohol intake: never substance use type: denies use current occupational status: retired Travel in the last 8 weeks: None household members: children (son) housing: house marital status: current occupational exposures/hazards: No ROS Obtained: Yes All systems reviewed & no additional complaints except as documented Musculoskeletal Musculoskeletal: Reports as per HPI Physical Exam General General appearance: alert and in no apparent distress Respiratory Respiratory exam: Present normal lung sounds bilaterally; Absent respiratory distress or wheezes Cardiovascular Cardiovascular exam: Present regular rate, normal rhythm and normal heart sounds Expanded Lower Extremity Exam Right: Lower leg exam: Absent tenderness, swelling, palpable cord or Homans' sign Ankle exam: Present swelling and erythema; Absent full ROM Neurological Exam Neurological exam: Present alert, oriented X3 and normal gait Medical Decision Making Geraldo Inquiry Pt receiving controlled substance: No
[2023-07-11 11:10] VITALS: BP 146/78; PULSE 83; RESP 20; TEMP 36.4; O2SAT 99; BMI 27.1
[2023-07-11] MEDS: methylPREDNISolone ACETATE 80MG/ML VIAL 80 MG IM (11:34)
[2023-07-11] MEDS: KETOROLAC 30MG/ML VIAL 15 MG IM (11:34)
--- NOTE | 2023-07-11 11:41 | ED_ITS ---
Discharge Plan Disposition Patient Disposition: Home, Self-Care Condition: Good Prescriptions Prescriptions: New prednisone 20 mg tablet 20 mg PO BID Qty: 10 0RF No Action betamethasone dipropionate 0.05 % cream 1 applic topical BID azelastine 137 mcg (0.1 %) aerosol,spray 1 spray intranasal BID Qty: 30 2RF Rx Instructions: administer into each nostril levocetirizine [Xyzal] 5 mg tablet 5 mg PO DAILY Qty: 30 2RF All Day Allergy (cetirizine) 10 mg capsule 10 mg PO DAILY PRN (Reason: allergies) cholecalciferol (vitamin D3) 25 mcg (1,000 unit) capsule 25 mcg PO DAILY Eliquis 5 mg tablet 5 mg PO BID Qty: 60 5RF valsartan 320 mg tablet 320 mg PO DAILY Qty: 30 2RF furosemide 40 mg tablet 40 mg PO DAILY Patient Comments: TAKE 1 TABLET BY MOUTH ONCE DAILY FOR FLUID carvedilol 12.5 mg tablet 12.5 mg PO DAILY metformin 500 mg tablet extended release 24 hr 1,000 mg PO BID Qty: 360 2RF atorvastatin 80 mg tablet See Rx Instructions .ROUTE .COMPLEX Qty: 90 3RF Dose Instruction: TAKE 1 TABLET BY MOUTH AT BEDTIME Rx Instructions: TAKE 1 TABLET BY MOUTH AT BEDTIME hydrocortisone 2.5 % cream 1 applic topical BID 7 Days Qty: 20 0RF Rx Instructions: Apply very thin layer to hemorrhoids twice daily for up to 1 week allopurinol 100 mg tablet 100 mg PO DAILY Qty: 90 3RF prednisone 50 mg tablet 50 mg PO DAILY Qty: 7 0RF (DME) Blood Glucose Test Strip See Rx Instructions .Route Qty: 50 2RF Rx Instructions: Bid prn fluticasone propionate [Flonase Allergy Relief] 50 mcg/actuation spray,suspension 2 spray intranasal BID Qty: 16 3RF Rx Instructions: administer into each nostril icosapent ethyl [Vascepa] 1 gram capsule 2 g PO BID Qty: 120 4RF Edarbyclor 40-25 mg tablet 1 tab PO DAILY Qty: 90 1RF Patient Comments: TAKE 1 TABLET BY MOUTH ONCE DAILY gabapentin 600 mg tablet 300 mg PO BID Qty: 30 3RF hydrocodone-acetaminophen 5-325 mg tablet 1 tab PO BID PRN (Reason: pain) Qty: 60 0RF Referrals Follow up/Referrals: Constantine Garland MD [Primary Care Provider] - See instructions Clinical Impressions Clinical Impression: Gout Instructions Patient Instructions: DI for Gout Discharge ED Provider: Leny Elizabeth [facility] [place] General Stated complaint: Pain, redness and swelling in R leg Mode of Arrival: Ambulatory Source of Information: Patient Limitations: No Limitations Time Seen by Provider: 07/11/23 11:20 Description of Symptoms (Recalled from Triage Doc. by RN): PATIENT C/O SWELLING AND PAIN TO LEFT FOOT AND ANKLE X 2 DAYS HEENT Symptoms (Recalled from RN notes): No Resp Symptoms (Recalled from RN notes): No Skin Symptoms (Recalled from RN notes): No MS Symptoms (Recalled from RN notes): Yes Functional Status (Recalled from RN notes): WNL History of Present Illness Onset (ago): day(s) Location: right and lower extremity Relieving factors: none Exacerbating factors: none Associated symptoms: denies other symptoms Treatments prior to arrival: none Related Data Home Medications Medication Instructions Recorded Confirmed cetirizine 10 mg capsule (All Day 10 mg PO DAILY PRN allergies 10/05/21 07/10/23 Allergy (cetirizine)) cholecalciferol (vitamin D3) 25 25 mcg PO DAILY 10/05/21 07/10/23 mcg (1,000 unit) capsule betamethasone dipropionate 0.05 % 1 applic topical BID 07/09/22 07/10/23 topical cream furosemide 40 mg tablet 40 mg PO DAILY 02/10/23 07/10/23 carvedilol 12.5 mg tablet 12.5 mg PO DAILY 04/17/23 07/10/23 Previous Rx's Medication Instructions Recorded fluticasone propionate 50 2 spray intranasal BID allergies 04/02/22 mcg/actuation nasal #16 grams spray,suspension (Flonase Allergy Relief) apixaban 5 mg tablet (Eliquis) 5 mg PO BID #60 tabs 09/05/22 valsartan 320 mg tablet 320 mg PO DAILY #30 tabs 12/16/22 azelastine 137 mcg (0.1 %) nasal 1 spray intranasal BID #30 mL 02/19/23 spray aerosol levocetirizine 5 mg tablet (Xyzal) 5 mg PO DAILY #30 tabs 02/19/23 hydrocortisone 2.5 % topical cream 1 applic topical BID 1 week #20 03/27/23 grams atorvastatin 80 mg tablet See Rx Instructions .Route 04/17/23 .COMPLEX #90 tabs metformin 500 mg tablet,extended 1,000 mg (2 x 500 mg) PO BID #360 04/17/23 release 24 hr tabs Vascepa 1 gram capsule (icosapent 2 g (2 x 1 gram) PO BID #120 caps 04/18/23 ethyl) azilsartan medoxomil 40 1 tab PO DAILY #90 tabs 06/04/23 mg-chlorthalidone 25 mg tablet (Edarbyclor) gabapentin 600 mg tablet 300 mg (1/2 x 600 mg) PO BID nerve 07/03/23 pain #30 tabs hydrocodone 5 mg-acetaminophen 325 1 tab PO BID PRN pain #60 tabs 07/03/23 mg tablet allopurinol 100 mg tablet 100 mg PO DAILY #90 tabs 07/10/23 blood sugar diagnostic (Blood #50 ea 07/10/23 Glucose Test strips) prednisone 50 mg tablet 50 mg PO DAILY gout #7 tabs 07/10/23 prednisone 20 mg tablet 20 mg PO BID #10 tabs 07/11/23 Allergies Allergy/AdvReac Type Severity Reaction Status Date / Time codeine [CODEINE] Allergy Unknown Verified 07/10/23 11:36 Worker's Comp Is this a Worker's Comp case?: No [facility] Disclaimer: The information contained in this section may have been updated after the patient was seen, as this information can be updated by other users. Medical History Abnormal findings on diagnostic imaging of heart and coronary circulation Agatston CAC score 100-199 Chest pain Hemorrhoids Skin cancer Hearing loss Impacted cerumen of left ear Abnormal ear sensation Sinus bradycardia Malignant essential hypertension TMJ dysfunction Sinus drainage History of skin cancer H/O myocardial infarction, greater than 8 weeks Gout Malignant essential hypertension Nodule of kidney HTN (hypertension) History of rectal bleeding Altered mental status CAD (coronary artery disease) Dyspnea Atrial fibrillation Hyperlipidemia Coronary arteriosclerosis Diabetes mellitus Hypertensive heart disease without heart failure Paroxysmal atrial fibrillation Surgical History History of tubal ligation History of hysterectomy Family History Father Diabetes Coronary artery disease Social History Smoking Status: Former smoker alcohol intake: never substance use type: denies use current occupational status: retired Travel in the last 8 weeks: None household members: children (son) housing: house marital status: current occupational exposures/hazards: No ROS Obtained: Yes All systems reviewed & no additional complaints except as documented Physical Exam General General appearance: alert and in no apparent distress Respiratory Respiratory exam: Present normal lung sounds bilaterally Cardiovascular Cardiovascular exam: Present regular rate Neurological Exam Neurological exam: Present alert Medical Decision Making Geraldo Inquiry Pt receiving controlled substance: No Vital Signs: 07/11/23 11:10 Temperature 97.6 F Temperature Source Oral Pulse Rate [Left Brachial] 83 Respiratory Rate 20 Blood Pressure [Left Arm] 146/78 H Blood Pressure Mean [Left Arm] 100 Blood Pressure Source [Left Arm] Automatic Cuff Blood Pressure Position [Left Arm] Sitting 02 Sat by Pulse Oximetry 99 Oxygen Delivery Method Room Air Orders (Tests/Meds): ED MEDICATIONS Discontinued Medications Generic Name Dose Route Start Last Admin Trade Name Freq PRN Reason Stop Dose Admin Ketorolac Tromethamine 15 mg 07/11/23 11:28 07/11/23 11:34 Ketorolac 30mg/Ml Vial IM 07/11/23 11:29 15 mg ONCE ONE Administration Methylprednisolone Acetate 80 mg 07/11/23 11:28 07/11/23 11:34 Methylprednisolone Acetate 80mg/Ml Vial IM 07/11/23 11:29 80 mg ONCE ONE Administration
[2023-07-11 11:55] VITALS: BP 146/78; PULSE 83; RESP 20; TEMP 36.4; O2SAT 99
== END 2023-07-11 11:57 | disposition home or self-care (01) ==
PROVIDERS: Emergency Provider Physician Assistant; PCP Family Medicine
DX: M10.071 Idiopathic gout, right ankle and foot (principal); M79.671 Pain in right foot; M79.661 Pain in right lower leg; I11.9 Hypertensive heart disease without heart failure; I25.10 Atherosclerotic heart disease of native coronary artery without angina pectoris; E78.5 Hyperlipidemia, unspecified; I48.0 Paroxysmal atrial fibrillation; Z79.01 Long term (current) use of anticoagulants; E11.9 Type 2 diabetes mellitus without complications; Z79.84 Long term (current) use of oral hypoglycemic drugs
CPT/HCPCS: 96372; 99212; 99214; G0463; J1010

== ENCOUNTER 2023-08-06 08:49 | Outpatient (CLI) | payer MEDICARE, MEDICAID, SELFPAY ==
--- NOTE | 2023-08-06 08:54 | XR_ITS ---
FINAL REPORT CLINICAL HISTORY: foot pain COMPARISON: None FINDINGS: RIGHT FOOT: Three views of the right foot were obtained. There is no acute fracture or dislocation. Mild degenerative changes present. There is a small plantar calcaneal spur. There is no soft tissue abnormality. IMPRESSION: No acute bony abnormality. Mild degenerative change with a small plantar calcaneal spur. Reviewed, Interpreted and Dictated by Topher Whitney III, MD Transcribed by Michelle Saucedo Authenticated and [facility]
--- NOTE | 2023-08-06 08:54 | XR_ITS ---
FINAL REPORT CLINICAL HISTORY: foot pain COMPARISON: None FINDINGS: LEFT FOOT: Three views of the left foot were obtained. There is no acute fracture or dislocation. Mild degenerative change is present. There is a small plantar calcaneal spur. There is no soft tissue abnormality. IMPRESSION: No acute bony abnormality. Mild degenerative change with a small plantar calcaneal spur. Reviewed, Interpreted and Dictated by Topher Whitney III, MD Transcribed by Michelle Saucedo Authenticated and [facility]
== END 2023-08-06 23:59 | disposition home or self-care (01) ==
PROVIDERS: PCP Family Medicine; Visit Provider Nurse Practitioner
DX: M79.671 Pain in right foot (principal); M79.672 Pain in left foot
CPT/HCPCS: 73630

== ENCOUNTER 2023-10-20 15:13 | Outpatient (CLI) | payer MEDICARE, MEDICAID, SELFPAY ==
[2023-10-20 19:04] LABS: Hemoglobin A1C 7.7 % (4.0-6.0)
== END 2023-10-20 23:59 | disposition home or self-care (01) ==
LOC: LAB.DROPOF 10-21 15:14
PROVIDERS: PCP Family Medicine; Visit Provider Family Medicine
DX: E11.9 Type 2 diabetes mellitus without complications (principal)
CPT/HCPCS: 83036

== ENCOUNTER 2023-11-08 13:19 | Emergency (ER) | payer MEDICARE, MEDICAID, SELFPAY ==
[2023-11-08] VITALS (7 sets, daily range): BP systolic 134–154; BP diastolic 70–84; PULSE 28–64; RESP 12–17; TEMP 36.5–36.6; O2SAT 83–96; BMI 27.1
--- NOTE | 2023-11-08 13:19 | ECG_ITS ---
APPROVED REPORT Exam: Resting ECG HR:58 bpm ECG Measurements Heart Rate 58 AXES IL 218 P 86 QRSd 89 QRS 17 QT 442 T 73 QTc 439 Conclusion SINUS BRADYCARDIA WITH FIRST DEGREE AV BLOCK LOW QRS VOLTAGE IN PRECORDIAL LEADS [QRS DEFLECTION < 1.0 mV IN CHEST LEADS] ABNORMAL ECG Electronically signed by : DAVID NEWMAN, 11/08/2023 15:38:10
--- NOTE | 2023-11-08 13:21 | ED_ITS ---
Discharge Plan Disposition Patient Disposition: Home, Self-Care Condition: Good Prescriptions Prescriptions: No Action betamethasone dipropionate 0.05 % cream 1 applic topical BID azelastine 137 mcg (0.1 %) aerosol,spray 1 spray intranasal BID Qty: 30 2RF Rx Instructions: administer into each nostril levocetirizine [Xyzal] 5 mg tablet 5 mg PO DAILY Qty: 30 2RF Jardiance 25 mg tablet 25 mg PO DAILY Qty: 30 3RF cholecalciferol (vitamin D3) 25 mcg (1,000 unit) capsule 25 mcg PO DAILY Eliquis 5 mg tablet 5 mg PO BID Qty: 60 5RF atorvastatin 80 mg tablet See Rx Instructions .ROUTE .COMPLEX Qty: 90 3RF Dose Instruction: TAKE 1 TABLET BY MOUTH AT BEDTIME Rx Instructions: TAKE 1 TABLET BY MOUTH AT BEDTIME hydrocortisone 2.5 % cream 1 applic topical BID 7 Days Qty: 20 0RF Rx Instructions: Apply very thin layer to hemorrhoids twice daily for up to 1 week fluticasone propionate [Flonase Allergy Relief] 50 mcg/actuation spray,suspension 2 spray intranasal BID Qty: 16 3RF Rx Instructions: administer into each nostril icosapent ethyl [Vascepa] 1 gram capsule 2 g PO BID Qty: 120 4RF Edarbyclor 40-25 mg tablet 1 tab PO DAILY Qty: 90 1RF Patient Comments: TAKE 1 TABLET BY MOUTH ONCE DAILY (DME) True Metrix Glucose Test Strip Strip See Rx Instructions .Route Qty: 100 2RF Rx Instructions: BID prn (DME) blood-glucose meter [Blood Glucose Monitoring] Kit See Rx Instructions .Route Qty: 1 0RF Rx Instructions: Test BID (DME) Blood Glucose Test Strip See Rx Instructions .Route Qty: 50 2RF Rx Instructions: Bid prn (DME) blood-glucose meter Kit See Rx Instructions .Route Qty: 1 0RF Rx Instructions: As directed gabapentin 600 mg tablet 300 mg PO BID Qty: 30 3RF allopurinol 100 mg tablet 100 mg PO DAILY Qty: 90 3RF carvedilol [Coreg] 25 mg tablet 25 mg PO BID Qty: 60 2RF Rx Instructions: must administer with a meal/food furosemide 40 mg tablet See Rx Instructions .ROUTE .COMPLEX Qty: 90 2RF Dose Instruction: TAKE 1 TABLET BY MOUTH ONCE DAILY FOR FLUID Rx Instructions: TAKE 1 TABLET BY MOUTH ONCE DAILY FOR FLUID glipizide 2.5 mg tablet extended release 24hr 2.5 mg PO DAILY Qty: 30 2RF Referrals Follow up/Referrals: Constantine Garland MD [Primary Care Provider] - See instructions Clinical Impressions Clinical Impression: Syncope Instructions Patient Instructions: DI for Syncope in Adults (Fainting), DI for Syncope in Children (Fainting) Print Language Print Language: Yakut Discharge ED Provider: Emil Caballero General Adult HPI <Adan Hills MD - Last Filed: 11/08/23 15:51> General Chief complaint: Syncope Stated complaint: syncope Time Seen by Provider: 11/08/23 13:21 History of Present Illness HPI narrative: The patient presents with a chief complaint of syncope that occurred while cutting tomatoes. She reports feeling fine before the episode, which came on suddenly and caused her to feel sick and need to sit down. The patient has a history of similar episodes occurring six or seven years ago when she smoked, but this has been happening for months now. The patient has a history of atrial fibrillation.She was scheduled for a heart catheterization about a month ago but did not undergo the procedure. The patient is also on a blood thinner, possibly Eliquis. During the syncope episode, the patient did not experience any palpitations, irregular or fast heartbeats, and denies having any pain. She was unresponsive reportedly for at least 15 minutes but was breathing. The patient currently feels groggy but otherwise all right. Please note that above description of symptoms, in this electronic medical record under categorization of recalled from ER triage doctor by RN are reflective of an initial nursing assessment, however, is not reflective of my full history and physical exam that was personally taken and clarified. Consequentially, this preceding description of symptoms, which may include the patient's categorized chief complaint in the EMR, do not reflect my personal clinical impression, and the ultimate description of history of present illness and patient stated complaints should be deferred to this section of the note. Unless stated otherwise or congruent with this section of the note, additional signs, symptoms, or incongruence should be interpreted as inaccurate with my clinical impression. Related Data Home Medications ?Medication ?Instructions ?Recorded ?Confirmed cholecalciferol (vitamin D3) 25 25 mcg PO DAILY 10/05/21 10/20/23 mcg (1,000 unit) capsule betamethasone dipropionate 0.05 % 1 applic topical BID 07/09/22 10/20/23 topical cream Previous Rx's ?Medication ?Instructions ?Recorded fluticasone propionate 50 2 spray intranasal BID allergies 04/02/22 mcg/actuation nasal #16 grams spray,suspension (Flonase Allergy Relief) apixaban 5 mg tablet (Eliquis) 5 mg PO BID #60 tabs 09/05/22 azelastine 137 mcg (0.1 %) nasal 1 spray intranasal BID #30 mL 02/19/23 spray levocetirizine 5 mg tablet (Xyzal) 5 mg PO DAILY #30 tabs 02/19/23 hydrocortisone 2.5 % topical cream 1 applic topical BID 1 week #20 03/27/23 grams atorvastatin 80 mg tablet See Rx Instructions .Route 04/17/23 .COMPLEX #90 tabs Vascepa 1 gram capsule (icosapent 2 g (2 x 1 gram) PO BID #120 caps 04/18/23 ethyl) azilsartan medoxomil 40 1 tab PO DAILY #90 tabs 06/04/23 mg-chlorthalidone 25 mg tablet (Edarbyclor) empagliflozin 25 mg tablet 25 mg PO DAILY #30 tabs 07/22/23 (Jardiance) blood sugar diagnostic (True #100 ea 07/30/23 Metrix Glucose Test Strip) blood sugar diagnostic (Blood #50 ea 07/31/23 Glucose Test strips) blood-glucose meter (Blood Glucose #1 ea 07/31/23 Monitoring kit) blood-glucose meter #1 ea 08/25/23 gabapentin 600 mg tablet 300 mg (1/2 x 600 mg) PO BID nerve 10/01/23 pain #30 tabs allopurinol 100 mg tablet 100 mg PO DAILY #90 tabs 10/02/23 carvedilol 25 mg tablet (Coreg) 25 mg PO BID #60 tabs 10/13/23 furosemide 40 mg tablet See Rx Instructions .Route 10/15/23 .COMPLEX #90 tabs glipizide 2.5 mg tablet, extended 2.5 mg PO DAILY #30 tabs 10/28/23 release 24 hr Allergies Allergy/AdvReac Type Severity Reaction Status Date / Time codeine [CODEINE] Allergy Unknown Verified 10/20/23 09:55 metformin AdvReac Diarrhea Verified 10/20/23 09:55 PFSH <Adan Hills MD - Last Filed: 11/08/23 15:51> [facility] Disclaimer: The information contained in this section may have been updated after the patient was seen, as this information can be updated by other users. Medical History Abnormal findings on diagnostic imaging of heart and coronary circulation Agatston CAC score 100-199 Chest pain Hemorrhoids Skin cancer Hearing loss Impacted cerumen of left ear Abnormal ear sensation Sinus bradycardia Malignant essential hypertension TMJ dysfunction Sinus drainage History of skin cancer H/O myocardial infarction, greater than 8 weeks Gout Malignant essential hypertension Nodule of kidney HTN (hypertension) History of rectal bleeding Altered mental status CAD (coronary artery disease) Dyspnea Atrial fibrillation Hyperlipidemia Coronary arteriosclerosis Diabetes mellitus Hypertensive heart disease without heart failure Paroxysmal atrial fibrillation Surgical History History of tubal ligation History of hysterectomy Family History Father Diabetes Coronary artery disease Social History Smoking Status: Never smoker alcohol intake: never substance use type: denies use current occupational status: retired Travel in the last 8 weeks: None household members: children (son) housing: house marital status: current occupational exposures/hazards: No <Adan Hills MD - Last Filed: 11/08/23 15:51> ROS Obtained: Yes other As per HPI Physical Exam <Adan Hills MD - Last Filed: 11/08/23 15:51> General General appearance: alert and in no apparent distress Head Head exam: atraumatic and normocephalic Eye Eye exam: Present normal appearance Neck Neck exam: Present normal inspection Chest Chest inspection: Present normal inspection and symmetric chest wall rise Respiratory Respiratory exam: Present other (Trace bilateral crackles on lung bases.); Absent respiratory distress Cardiovascular Cardiovascular exam: Present regular rate and bradycardia Abdominal Exam Abdominal exam: Present soft Neurological Exam Neurological exam: Present alert and oriented X3 Psychiatric Psychiatric exam: Present normal affect and normal mood Skin Skin exam: Present warm and dry Medical Decision Making <Adan Hills MD - Last Filed: 11/08/23 15:51> Medical Records Medical records reviewed: Yes I reviewed the patient's medical records. Geraldo Inquiry Pt receiving controlled substance: No Vital Signs: 11/08/23 13:19 11/08/23 14:00 11/08/23 14:30 Temperature 97.7 F Temperature Source Oral Pulse Rate 56 L Pulse Rate [Left Radial] 64 Respiratory Rate 13 12 17 Blood Pressure 139/73 134/75 Blood Pressure [Right Arm] 151/70 H Blood Pressure Mean [Right Arm] 97 02 Sat by Pulse Oximetry 96 96 Oxygen Delivery Method Room Air 11/08/23 15:00 11/08/23 15:30 11/08/23 16:01 Temperature Temperature Source Pulse Rate 28 L 54 L Pulse Rate [Left Radial] Respiratory Rate 15 15 17 Blood Pressure 142/78 H 141/83 H 154/84 H Blood Pressure [Right Arm] Blood Pressure Mean [Right Arm] 02 Sat by Pulse Oximetry 83 L 94 L Oxygen Delivery Method 11/08/23 18:25 Temperature 97.9 F Temperature Source Pulse Rate 54 L Pulse Rate [Left Radial] Respiratory Rate 17 Blood Pressure 154/84 H Blood Pressure [Right Arm] Blood Pressure Mean [Right Arm] 02 Sat by Pulse Oximetry Oxygen Delivery Method Lab Data Lab Results 11/08/23 13:23: WBC 8.2, RBC 4.69, Hgb 13.8, Hct 43.9, MCV 93.6, MCH 29.4, MCHC 31.5 L, RDW 15.9, Plt Count 171, MPV 8.1, Neut % (Auto) 75.9, Lymph % (Auto) 16.4, [place] % (Auto) 6.0, Eos % (Auto) 1.3, Baso % (Auto) 0.4, Neut # (Auto) 6.2, Lymph # (Auto) 1.3, [place] # (Auto) 0.5, Eos # (Auto) 0.1, Baso # (Auto) 0.0, Sodium 137, Potassium 3.5, Chloride 94 L, Carbon Dioxide 34 H, Anion Gap 12.5, B UN 36 H, Creatinine 1.30 H, Estimated Creat Clear 38, Estimated GFR 40 L, Est GFR ( Amer) 48 L, Glucose 273 H, Calcium 9.1, Magnesium 2.1, Total Bilirubin 0.6, AST 37 H, ALT 33, Alkaline Phosphatase 95, Troponin I < 0.01, NT-Pro-B Natriuret Pep 185, Total Protein 6.9, Albumin 4.1, Globulin 2.8, Albumin/Globulin Ratio 1.5, TSH 6.24 H, Free T4 1.09 11/08/23 16:20: Troponin I < 0.01 11/08/23 13:23 11/08/23 13:23 Orders (Tests/Meds): ORDERS Category Date Time Status XR chest portable Stat Exams 11/08/23 13:44 Completed BNP [NT Pro Brain Natriuretic Pep.] Stat Lab 11/08/23 13:23 Completed CBC w/Auto Diff [Complete Blood Count Auto Diff] Stat Lab 11/08/23 13:23 Completed CMP [Comprehensive Metabolic Panel] Stat Lab 11/08/23 13:23 Completed Free T4 (Free Thyroxine) Stat Lab 11/08/23 13:23 Completed MAG [Magnesium] Stat Lab 11/08/23 13:23 Completed TSH [Thyroid Stimulating Hormone] Stat Lab 11/08/23 13:23 Completed Troponin I Q3H Lab 11/08/23 13:23 Completed Troponin I Q3H Lab 11/08/23 16:20 Completed Medical Decision Narrative: Patient with history and exam per above presenting for evaluation of syncopal episode Diagnoses considered include cardiogenic syncope, reflux and could be, features to me most suggestive at this time to reflex syncope in the setting of beta- arlene usage, insufficient clinical evidence to suggest necessity of workup for seizure, intracranial hemorrhage, or dissection. ED workup and treatment included: ORDERS Category Date Time Status XR chest portable Stat Exams 11/08/23 13:44 Completed BNP [NT Pro Brain Natriuretic Pep.] Stat Lab 11/08/23 13:23 Completed CBC w/Auto Diff [Complete Blood Count Auto Diff] Stat Lab 11/08/23 13:23 Completed CMP [Comprehensive Metabolic Panel] Stat Lab 11/08/23 13:23 Completed Free T4 (Free Thyroxine) Stat Lab 11/08/23 13:23 Completed MAG [Magnesium] Stat Lab 11/08/23 13:23 Completed TSH [Thyroid Stimulating Hormone] Stat Lab 11/08/23 13:23 Completed Troponin I Q3H Lab 11/08/23 13:23 Completed Troponin I Q3H Lab 11/08/23 16:45 Ordered Labs were independently interpreted by me, significant for creatinine 1.30, largely consistent with baseline, no leukocytosis, initial troponin undetectable. Imaging was independently visualized and interpreted by me, significant for no acute findings Please refer to radiology report for full details. Care was transferred to incoming physician. <Emil Adriana LynnCaballero, DO - Last Filed: 11/08/23 23:52> Vital Signs: 11/08/23 13:19 11/08/23 14:00 11/08/23 14:30 Temperature 97.7 F Temperature Source Oral Pulse Rate 56 L Pulse Rate [Left Radial] 64 Respiratory Rate 13 12 17 Blood Pressure 139/73 134/75 Blood Pressure [Right Arm] 151/70 H Blood Pressure Mean [Right Arm] 97 02 Sat by Pulse Oximetry 96 96 Oxygen Delivery Method Room Air 11/08/23 15:00 11/08/23 15:30 11/08/23 16:01 Temperature Temperature Source Pulse Rate 28 L 54 L Pulse Rate [Left Radial] Respiratory Rate 15 15 17 Blood Pressure 142/78 H 141/83 H 154/84 H Blood Pressure [Right Arm] Blood Pressure Mean [Right Arm] 02 Sat by Pulse Oximetry 83 L 94 L Oxygen Delivery Method 11/08/23 18:25 Temperature 97.9 F Temperature Source Pulse Rate 54 L Pulse Rate [Left Radial] Respiratory Rate 17 Blood Pressure 154/84 H Blood Pressure [Right Arm] Blood Pressure Mean [Right Arm] 02 Sat by Pulse Oximetry Oxygen Delivery Method Lab Data Lab Results 11/08/23 13:23: WBC 8.2, RBC 4.69, Hgb 13.8, Hct 43.9, MCV 93.6, MCH 29.4, MCHC 31.5 L, RDW 15.9, Plt Count 171, MPV 8.1, Neut % (Auto) 75.9, Lymph % (Auto) 16.4, [place] % (Auto) 6.0, Eos % (Auto) 1.3, Baso % (Auto) 0.4, Neut # (Auto) 6.2, Lymph # (Auto) 1.3, [place] # (Auto) 0.5, Eos # (Auto) 0.1, Baso # (Auto) 0.0, Sodium 137, Potassium 3.5, Chloride 94 L, Carbon Dioxide 34 H, Anion Gap 12.5, B UN 36 H, Creatinine 1.30 H, Estimated Creat Clear 38, Estimated GFR 40 L, Est GFR ( Amer) 48 L, Glucose 273 H, Calcium 9.1, Magnesium 2.1, Total Bilirubin 0.6, AST 37 H, ALT 33, Alkaline Phosphatase 95, Troponin I < 0.01, NT-Pro-B Natriuret Pep 185, Total Protein 6.9, Albumin 4.1, Globulin 2.8, Albumin/Globulin Ratio 1.5, TSH 6.24 H, Free T4 1.09 11/08/23 16:20: Troponin I < 0.01 Orders (Tests/Meds): ORDERS Category Date Time Status XR chest portable Stat Exams 11/08/23 13:44 Completed BNP [NT Pro Brain Natriuretic Pep.] Stat Lab 11/08/23 13:23 Completed CBC w/Auto Diff [Complete Blood Count Auto Diff] Stat Lab 11/08/23 13:23 Completed CMP [Comprehensive Metabolic Panel] Stat Lab 11/08/23 13:23 Completed Free T4 (Free Thyroxine) Stat Lab 11/08/23 13:23 Completed MAG [Magnesium] Stat Lab 11/08/23 13:23 Completed TSH [Thyroid Stimulating Hormone] Stat Lab 11/08/23 13:23 Completed Troponin I Q3H Lab 11/08/23 13:23 Completed Troponin I Q3H Lab 11/08/23 16:20 Completed Medical Decision Narrative: Patient with history and exam per above presenting for evaluation of syncopal episode Diagnoses considered include cardiogenic syncope, reflux and could be, features to me most suggestive at this time to reflex syncope in the setting of beta- arlene usage, insufficient clinical evidence to suggest necessity of workup for seizure, intracranial hemorrhage, or dissection. ED workup and treatment included: ORDERS Category Date Time Status XR chest portable Stat Exams 11/08/23 13:44 Completed BNP [NT Pro Brain Natriuretic Pep.] Stat Lab 11/08/23 13:23 Completed CBC w/Auto Diff [Complete Blood Count Auto Diff] Stat Lab 11/08/23 13:23 Completed CMP [Comprehensive Metabolic Panel] Stat Lab 11/08/23 13:23 Completed Free T4 (Free Thyroxine) Stat Lab 11/08/23 13:23 Completed MAG [Magnesium] Stat Lab 11/08/23 13:23 Completed TSH [Thyroid Stimulating Hormone] Stat Lab 11/08/23 13:23 Completed Troponin I Q3H Lab 11/08/23 13:23 Completed Troponin I Q3H Lab 11/08/23 16:45 Ordered Labs were independently interpreted by me, significant for creatinine 1.30, largely consistent with baseline, no leukocytosis, initial troponin undetectable. Imaging was independently visualized and interpreted by me, significant for no acute findings Please refer to radiology report for full details. Care was transferred to incoming physician. Care assumed by Caballero DO Repeat troponin pending. Repeat troponin negative. Results of today's workup discussed with patient and her daughter at bedside. They indicate understanding. At this time medically clear for discharge with outpatient follow-up. Patient is in agreement with plan and would like to go home. Given strict instructions to return to ED if symptoms worsen. Discharged home with hemodynamically stable vitals Critical Care <Adan Hills MD - Last Filed: 11/08/23 15:51> Critical Care Time Critical Care Time: No
--- NOTE | 2023-11-08 13:44 | XR_ITS ---
PROCEDURE INFORMATION: Exam: XR Chest Exam date and time: 11/08/2023 1:47 PM Age: 78 years old Clinical indication: Other: Syncope; Additional info: Syncope, chest pain TECHNIQUE: Imaging protocol: Radiologic exam of the chest. Views: 1 view. COMPARISON: CR XR CHEST PORTABLE 12/18/2020 6:22 PM FINDINGS: Lungs: Opacity in the left costophrenic angle may represent minimal atelectasis or pneumonia.. Pleural spaces: Unremarkable. No pleural effusion. No pneumothorax. Heart/Mediastinum: Unremarkable. No cardiomegaly. Bones/joints: Unremarkable. IMPRESSION: Opacity in the left costophrenic angle may represent minimal atelectasis or pneumonia..
[2023-11-08 13:54] LABS: Albumin Level 4.1 g/dl (3.5-5.0); Chloride 94 mmol/L (98-107); Sodium 137 mmol/L (136-145)
[2023-11-08 13:55] LABS: Potassium 3.5 mmoL/L (3.5-5.1)
[2023-11-08 13:56] LABS: Basophils % 0.4 % (0.1-2.0); Eosinophils # 0.1 K/mm3 (0.0-0.4); Eosinophils % 1.3 % (0.1-12.0); Hematocrit 43.9 % (37.0-47.0); Hemoglobin 13.8 g/dL (12.2-16.2); Lymphocytes # 1.3 K/mm3 (0.7-4.5); Lymphocytes % 16.4 % (10-50); Mean Corpuscular HGB Conc 31.5 g/dL (31.8-35.4); Mean Corpuscular Hemoglobin 29.4 pg (27.0-31.2); Mean Corpuscular Volume 93.6 fl (81-99); Mean Platelet Volume 8.1 fl (7.4-10.4); Monocytes # 0.5 K/mm3 (0.1-1.0); Neutrophils # 6.2 K/mm3 (1.8-7.8); Neutrophils % 75.9 % (37.0-80.0); Platelet Count 171 K/mm3 (142-424); Red Blood Count 4.69 M/mm3 (4.20-5.40); Red Cell Distribution Width 15.9 % (11.5-17.5); White Blood Count 8.2 K/mm3 (4.8-10.8)
[2023-11-08 13:57] LABS: Alanine Aminotransferase 33 U/L (12-78); Alkaline Phosphatase 95 U/L (38-126); Anion Gap 12.5 mEq/L (5-15); Aspartate Amino Transferase 37 U/L (14-36); Bilirubin,Total 0.6 mg/dl (0.2-1.3); Blood Urea Nitrogen 36 mg/dl (7-17); Carbon Dioxide 34 mmol/L (22.0-30.0); Creatinine Clearance Estimated 38 mL/min (50-200); Estimated Glomerular Filt Rate 40 ml/min (>60); GFR (African American) 48 ML/MIN (>60)
[2023-11-08 13:58] LABS: Albumin/Globulin Ratio 1.5 (1.1-1.8); Calcium 9.1 mg/dl (8.4-10.2); Globulin 2.8 g/dL (1.3-3.2); Glucose 273 mg/dl (74-100); Magnesium 2.1 mg/dl (1.6-2.3); Total Protein,Serum 6.9 g/dl (6.3-8.2)
[2023-11-08 14:07] LABS: NT Pro Brain Natriuretic Pep. 185 pg/mL (0-450)
[2023-11-08 14:12] LABS: Troponin I < 0.01 ng/ml (0.00-0.034)
[2023-11-08 14:28] LABS: Free T4 (Free Thyroxine) 1.09 ng/dl (0.78-2.19); Thyroid Stimulating Hormone 6.24 uIU/mL (0.465-4.68)
[2023-11-08 17:22] LABS: Troponin I < 0.01 ng/ml (0.00-0.034)
== END 2023-11-08 18:28 | disposition home or self-care (01) ==
PROVIDERS: Emergency Medicine; Emergency Provider Student in an Organized Health Care Education/Training Program; PCP Family Medicine
DX: R55 Syncope and collapse (principal); R11.0 Nausea; I48.0 Paroxysmal atrial fibrillation; I11.9 Hypertensive heart disease without heart failure; I25.10 Atherosclerotic heart disease of native coronary artery without angina pectoris; E11.65 Type 2 diabetes mellitus with hyperglycemia; E87.5 Hyperkalemia; Z79.01 Long term (current) use of anticoagulants; Z79.84 Long term (current) use of oral hypoglycemic drugs
CPT/HCPCS: 71045; 80053; 83735; 83880; 84439; 84443; 84484; 85025; 93005; 99284

== ENCOUNTER 2023-12-08 09:00 | Day surgery (SDC) | payer MEDICARE, MEDICAID, SELFPAY ==
[2023-12-08] VITALS (12 sets, daily range): BP systolic 135–162; BP diastolic 72–110; PULSE 47–60; RESP 16–20; O2SAT 94–99; BMI 27.1
--- NOTE | 2023-12-08 07:11 | IR_ITS ---
APPROVED REPORT Patient Location: Outpatient Senior Audit Manager: MARIAH Reeder RT (R) PROCEDURES Left heart catheterization Left ventriculogram Selective coronary angiogram Drug-eluting stent deployment to the proximal circumflex artery INDICATION Coronary artery disease, Syncope, Informed consent was obtained prior to the procedure. COMPLICATIONS NONE Estimated Blood Loss: LESS THAN 10 ML TECHNIQUE One percent lidocaine used to anesthetize the right anterior aspect of the wrist. The right radial artery was accessed via the Seldinger technique. A 6 Swedish sheath was placed in the right radial artery. 2.5 mg of Verapamil, 800 mcg of nitroglycerin, 1mg Lidocaine and 5000 U Heparin were given through the arterial sheath. The papa catheter was also used to perform left heart catheterization, left ventriculogram and selective coronary angiogram. At the end the diagnostic angiogram therapeutic Was administered giving a therapeutic ACT and the Choice PT extra-support wire was placed in the circumflex artery followed by 3 mm x 12 mm Gravel Switch frontier stent deployed proximally at 20 bee reducing the severe stenosis to 0%. FLORES-3 flow was present before and after the procedure. At the end the procedure the apparatus was removed the sheath was removed and hemostasis was achieved using TR banding patient was transferred to the postop putting in stable condition ANGIOGRAPHIC RESULTS The left main artery Normal The left anterior descending artery Has proximal 10 to 20% luminal regularities followed by a mid vessel 30 to 40% stenosis The circumflex artery Large nondominant with proximal concentric 80% stenosis The right coronary artery Large dominant with proximal 20 to 30% stenosis and diffuse 10 to 20% luminal regularities throughout The DOSS ventriculogram reveals Normal 65% The left ventricular end-diastolic pressure 10 to 15 mmHg IMPRESSION Severe disease in a proximal nondominant large circumflex artery Successful stenting of the proximal circumflex artery severe disease reduced to 0% with 1 drug-eluting stent Normal ejection fraction Normal LVEDP PLAN 1. Plavix and aspirin 2. LDL less than 55 to be achieved with high intensity statin 3. Avoidance of tobacco products 4. Cardiac rehabilitation 5. Risk factor modification Electronically signed by : Billy Ovalles MD 12/08/2023 10:59:11
[2023-12-08 09:48] LABS: Basophils % 0.4 % (0.1-2.0); Eosinophils # 0.1 K/mm3 (0.0-0.4); Hematocrit 42.5 % (37.0-47.0); Lymphocytes # 1.2 K/mm3 (0.7-4.5); Lymphocytes % 20.3 % (10-50); Mean Corpuscular HGB Conc 30.5 g/dL (31.8-35.4); Mean Corpuscular Hemoglobin 28.2 pg (27.0-31.2); Mean Corpuscular Volume 92.4 fl (81-99); Mean Platelet Volume 8.4 fl (7.4-10.4); Monocytes # 0.4 K/mm3 (0.1-1.0); Monocytes % 6.9 % (1.7-9.3); Neutrophils # 4.3 K/mm3 (1.8-7.8); Neutrophils % 70.4 % (37.0-80.0); Platelet Count 175 K/mm3 (142-424); Red Cell Distribution Width 16.1 % (11.5-17.5)
[2023-12-08 09:54] LABS: Blood Urea Nitrogen 45 mg/dl (7-17); Calcium 9.9 mg/dl (8.4-10.2); Carbon Dioxide 33 mmol/L (22.0-30.0); Chloride 102 mmol/L (98-107); Creatinine Clearance Estimated 35 mL/min (50-200); Estimated Glomerular Filt Rate 36 ml/min (>60); GFR (African American) 44 ML/MIN (>60); Glucose 168 mg/dl (74-100); Sodium 141 mmol/L (136-145)
[2023-12-08 09:59] LABS: Anion Gap 10.1 mEq/L (5-15); Potassium 4.1 mmoL/L (3.5-5.1)
[2023-12-08] MEDS: LIDOCAINE 1% 10ML MDV 20 ML IJ (10:43)
[2023-12-08] MEDS: diphenhydrAMINE 50MG/ML VIAL 50 MG IV (10:43)
[2023-12-08] MEDS: HEPARIN 1,000 UNITS/ML 10ML VIAL (CATH LAB) 10000 UNIT IV (10:43)
[2023-12-08] MEDS: FENTANYL 100MCG/2ML VIAL 50 MCG IV (10:44)
[2023-12-08] MEDS: 0.9 % SODIUM CHLORIDE 500 ML 25 ML IV (10:45)
[2023-12-08] MEDS: VERAPAMIL 2.5MG/ML 2ML VIAL 2.5 MG IV (10:45)
[2023-12-08] MEDS: MIDAZOLAM HCL 1MG/1ML 5ML VIAL 1 MG IV (10:45)
[2023-12-08] MEDS: HEPARIN 1,000 UNITS/500ML NS (CATH LAB) 3000 UNIT IV (10:46)
[2023-12-08] MEDS: CLOPIDOGREL 300MG TABLET 600 MG PO (11:09)
[2023-12-08] MEDS: ASPIRIN 325MG TABLET 325 MG PO (11:10)
[2023-12-08] MEDS: IOPAMIDOL-370 (76%);100ML BOTTLE 70 ML IV (12:46)
--- NOTE | 2023-12-08 14:23 | ECG_ITS ---
APPROVED REPORT Exam: Resting ECG HR:50 bpm ECG Measurements Heart Rate 50 AXES HI 212 P 80 QRSd 98 QRS -7 QT 452 T 51 QTc 425 Conclusion SINUS BRADYCARDIA WITH FIRST DEGREE AV BLOCK WITH OCCASIONAL SUPRAVENTRICULAR PREMATURE COMPLEXES LOW QRS VOLTAGE IN EXTREMITY LEADS [QRS DEFLECTION < 0.5 mV IN LIMB LEADS] INFERIOR MYOCARDIAL INFARCTION , PROBABLY OLD [40+ ms Q WAVE AND/OR ST/T ABNORMALITY IN II/aVF] ABNORMAL ECG UNCONFIRMED REPORT Electronically signed by : Benigno Yanez MD 12/09/2023 18:19:01
[2023-12-08 14:42] LABS: CATHL Activated Clotting Time > 400 SEC (74-125)
== END 2023-12-08 14:54 | disposition home or self-care (01) ==
LOC: CATHLAB 09:03
PROVIDERS: PCP Family Medicine; Visit Provider Internal Medicine
DX: R55 Syncope and collapse (principal); R93.1 Abnormal findings on diagnostic imaging of heart and coronary circulation; I25.10 Atherosclerotic heart disease of native coronary artery without angina pectoris; R94.31 Abnormal electrocardiogram [ECG] [EKG]; Z79.899 Other long term (current) drug therapy; E11.9 Type 2 diabetes mellitus without complications; I48.0 Paroxysmal atrial fibrillation; I10 Essential (primary) hypertension; I25.2 Old myocardial infarction; I77.1 Stricture of artery
CPT/HCPCS: 80048; 85025; 85347; 92928; 93005; 93458; 99152; C1725; C1769; C1874; C9600; J1200; J1644; J2250; J3010; Q9967

== ENCOUNTER 2023-12-12 11:07 | Outpatient (CLI) | payer MEDICARE, MEDICAID, SELFPAY ==
--- NOTE | 2023-12-12 11:11 | CA_ITS ---
APPROVED REPORT EXAM: Comprehensive 2D, Doppler, and color-flow Echocardiogram Jigsaw Operator: Kassandra Faulkner RVT Ht: 5 ft 1 in Wt: 144lbs BSA: 1.64 BP: 118/74 mmHg Indications: SOA.CAD.A-FIB.HTN,HLD,DM 2D Dimensions IVSd 1.62 cm F: 0.6-1.0 LVEF (Visual) 69.90 % PWd 1.13 cm F: 0.6 - 1.0 LA Volume 33.30 mL LVDd 4.58 cm F: 3.9 - 5.3 LA Volume Index 20.30 mL/m2 (M/F) 16-34 LVDs 2.78 cm F: 2.2 - 3.5 M-Mode Dimensions LA Diam 3.77 cm (1.9-4.0) TAPSE 2.26 (<1.7) LV Diastology E Decel Time 247 (160-240 msec) E/A Ratio 0.5 Aortic Valve YULIET Index 1.35 cm2/m2 AoV Peak Zechariah. 172.0 (50-130 cm/s) AO Peak GR. 11.80 mmHg AO Mean GR. 6.50 (<5 mmHg) AO VTI 41.7 (18-25 cm) YULIET (VTI) 2.27 (2.5-4.5 cm2) Mitral Valve MV E Max Zechariah. 70.0 (40-130 cm/s) MV A Velocity 130.0 (40-130 cm/s) E/A Ratio 0.54 MV PHT 72.0 ms Pulmonary Valve PV Peak Velocity 73.0 (50-150 cm/s) Tricuspid Valve TR P. Velocity 291.00 cm/s RAP Estimate 10.00 mmHg RVSP 43.80 mmHg Left Ventricle The left ventricle is normal size. The left ventricular systolic function is normal. The left ventricular ejection fraction is within the normal range. There is increased LV wall thickness. There is normal LV segmental wall motion. Transmitral Doppler flow pattern suggests impaired LV relaxation. LVEF is 55%. Right Ventricle The right ventricle is normal size. The right ventricular systolic function is normal. Atria The left atrium size is normal. The right atrium size is normal. There is no Doppler evidence of interatrial shunt. Aortic Valve The aortic valve is mildly thickened. There is no aortic valvular stenosis. Trace aortic regurgitation is present. Mitral Valve The mitral valve is mildly thickened. Trace mitral regurgitation. No evidence of mitral valve stenosis. Tricuspid Valve The tricuspid valve leaflets are thin and pliable. Trace tricuspid regurgitation. RVSP is 30-35 mmHg. Pulmonic Valve The pulmonary valve is normal in structure. Trace pulmonic regurgitation. Great Vessels The aortic root is normal in size. The ascending aorta is normal in size. IVC is normal in size and collapses >50% with inspiration. Pericardium There is no pericardial effusion. Other Information Study Quality: Fair Conclusion Normal biventricular systolic function. No significant valvular stenosis or regurgitation. RVSP 30-35 mmHg. Electronically signed by : Jennifer Rachel MD 12/14/2023 22:33:08
== END 2023-12-12 23:59 | disposition home or self-care (01) ==
LOC: RT 11:07
PROVIDERS: PCP Family Medicine; Visit Provider Nurse Practitioner Family
DX: R55 Syncope and collapse (principal); I20.89 Other forms of angina pectoris; R06.00 Dyspnea, unspecified
CPT/HCPCS: 93306

== ENCOUNTER 2024-01-05 09:44 | Outpatient (CLI) | payer MEDICARE, MEDICAID, SELFPAY ==
[2024-01-05 10:24] LABS: Basophils % 0.8 % (0.1-2.0); Eosinophils # 0.1 K/mm3 (0.0-0.4); Eosinophils % 2.2 % (0.1-12.0); Hematocrit 39.6 % (37.0-47.0); Hemoglobin 13.5 g/dL (12.2-16.2); Lymphocytes # 1.1 K/mm3 (0.7-4.5); Lymphocytes % 23.4 % (10-50); Mean Corpuscular HGB Conc 34.2 g/dL (31.8-35.4); Mean Corpuscular Hemoglobin 30.1 pg (27.0-31.2); Mean Corpuscular Volume 88.1 fl (81-99); Monocytes # 0.4 K/mm3 (0.1-1.0); Neutrophils # 3.1 K/mm3 (1.8-7.8); Neutrophils % 64.6 % (37.0-80.0); Platelet Count 148 K/mm3 (142-424); Red Blood Count 4.49 M/mm3 (4.20-5.40); Red Cell Distribution Width 16.2 % (11.5-17.5); White Blood Count 4.8 K/mm3 (4.8-10.8)
[2024-01-05 10:48] LABS: Chloride 103 mmol/L (98-107)
[2024-01-05 10:49] LABS: Potassium 3.8 mmoL/L (3.5-5.1); Sodium 140 mmol/L (136-145)
[2024-01-05 10:51] LABS: Alanine Aminotransferase 20 U/L (12-78); Alkaline Phosphatase 81 U/L (38-126); Anion Gap 7.8 mEq/L (5-15); Aspartate Amino Transferase 24 U/L (14-36); Bilirubin,Direct 0.1 mg/dl (0.0-0.4); Bilirubin,Indirect 0.5 mg/dL (0.0-0.9); Bilirubin,Total 0.6 mg/dl (0.2-1.3); Bilirubin,Unconjugated 0.5 mg/dL (0.0-1.1); Blood Urea Nitrogen 28 mg/dl (7-17); Carbon Dioxide 33 mmol/L (22.0-30.0); Estimated Glomerular Filt Rate 44 ml/min (>60); GFR (African American) 53 ML/MIN (>60); Total Protein,Serum 6.2 g/dl (6.3-8.2); Triglycerides 180 mg/dl (30-150); VLDL Cholesterol 36 mg/dL (0-40)
[2024-01-05 10:52] LABS: Calcium 9.3 mg/dl (8.4-10.2); Chol/HDL Ratio 3.5 (1-3.5); Cholesterol 142 mg/dl (140-200); Glucose 154 mg/dl (74-100); HDL Cholesterol 41 mg/dl (40-60)
[2024-01-05 11:03] LABS: Direct LDL Cholesterol 58.22 mg/dL (100-129)
[2024-01-05 11:10] LABS: Free T4 (Free Thyroxine) 0.92 ng/dl (0.78-2.19)
[2024-01-05 11:22] LABS: Thyroid Stimulating Hormone 5.79 uIU/mL (0.465-4.68)
== END 2024-01-05 23:59 | disposition home or self-care (01) ==
LOC: LAB 09:45
PROVIDERS: PCP Family Medicine; Visit Provider Nurse Practitioner
DX: I25.118 Atherosclerotic heart disease of native coronary artery with other forms of angina pectoris (principal); R94.31 Abnormal electrocardiogram [ECG] [EKG]; I48.0 Paroxysmal atrial fibrillation; I15.0 Renovascular hypertension; E11.9 Type 2 diabetes mellitus without complications
CPT/HCPCS: 36415; 80048; 80061; 80076; 83735; 84439; 84443; 85025

== ENCOUNTER 2024-04-01 08:49 | Outpatient (CLI) | payer MEDICARE, MEDICAID, SELFPAY ==
[2024-04-01 09:54] LABS: Basophils % 0.4 % (0.1-2.0); Eosinophils # 0.1 K/mm3 (0.0-0.4); Eosinophils % 2.3 % (0.1-12.0); Hematocrit 43.1 % (37.0-47.0); Hemoglobin 13.6 g/dL (12.2-16.2); Lymphocytes # 1.1 K/mm3 (0.7-4.5); Lymphocytes % 21.7 % (10-50); Mean Corpuscular HGB Conc 31.6 g/dL (31.8-35.4); Mean Corpuscular Hemoglobin 26.3 pg (27.0-31.2); Mean Corpuscular Volume 83.2 fl (81-99); Mean Platelet Volume 10.3 fl (7.4-10.4); Monocytes # 0.5 K/mm3 (0.1-1.0); Monocytes % 8.7 % (1.7-9.3); Neutrophils # 3.4 K/mm3 (1.8-7.8); Neutrophils % 66.3 % (37.0-80.0); Platelet Count 156 K/mm3 (142-424); Red Blood Count 5.18 M/mm3 (4.20-5.40); White Blood Count 5.2 K/mm3 (4.8-10.8)
[2024-04-01 10:10] LABS: Albumin Level 3.7 g/dl (3.5-5.0)
[2024-04-01 10:11] LABS: Chloride 103 mmol/L (98-107); Potassium 3.9 mmoL/L (3.5-5.1); Sodium 141 mmol/L (136-145)
[2024-04-01 10:13] LABS: Alanine Aminotransferase 26 U/L (12-78); Anion Gap 12.9 mEq/L (5-15); Aspartate Amino Transferase 32 U/L (14-36); Bilirubin,Unconjugated 0.1 mg/dL (0.0-1.1); Blood Urea Nitrogen 22 mg/dl (7-17); Carbon Dioxide 29 mmol/L (22.0-30.0); Estimated Glomerular Filt Rate 54 ml/min (>60); GFR (African American) 65 ML/MIN (>60); Total Protein,Serum 5.8 g/dl (6.3-8.2)
[2024-04-01 10:14] LABS: Alkaline Phosphatase 95 U/L (38-126); Bilirubin,Direct 0.2 mg/dl (0.0-0.4); Bilirubin,Indirect 0.2 mg/dL (0.0-0.9); Bilirubin,Total 0.4 mg/dl (0.2-1.3); Calcium 9.1 mg/dl (8.4-10.2); Chol/HDL Ratio 3.6 (1-3.5); Cholesterol 130 mg/dl (140-200); Glucose 142 mg/dl (74-100); HDL Cholesterol 36 mg/dl (40-60); Magnesium 1.8 mg/dl (1.6-2.3); Triglycerides 162 mg/dl (30-150); VLDL Cholesterol 32 mg/dL (0-40)
[2024-04-01 10:25] LABS: Direct LDL Cholesterol 64.23 mg/dL (100-129)
[2024-04-01 10:30] LABS: Free T4 (Free Thyroxine) 1.07 ng/dl (0.78-2.19)
== END 2024-04-01 23:59 | disposition home or self-care (01) ==
LOC: LAB 08:50
PROVIDERS: PCP Family Medicine; Visit Provider Physician Assistant
DX: I51.89 Other ill-defined heart diseases (principal); I48.0 Paroxysmal atrial fibrillation; I25.2 Old myocardial infarction; I15.0 Renovascular hypertension; I25.118 Atherosclerotic heart disease of native coronary artery with other forms of angina pectoris; E78.2 Mixed hyperlipidemia; E11.9 Type 2 diabetes mellitus without complications; E03.9 Hypothyroidism, unspecified
CPT/HCPCS: 36415; 80048; 80061; 80076; 83735; 84439; 84443; 85025

== ENCOUNTER 2024-06-29 09:57 | Outpatient (CLI) | payer MEDICARE, MEDICAID, SELFPAY ==
[2024-06-29 11:44] LABS: Albumin Level 4.1 g/dl (3.5-5.0); Chloride 101 mmol/L (98-107); Sodium 141 mmol/L (136-145)
[2024-06-29 11:47] LABS: Alanine Aminotransferase 18 U/L (12-78); Albumin/Globulin Ratio 1.7 (1.1-1.8); Alkaline Phosphatase 91 U/L (38-126); Aspartate Amino Transferase 27 U/L (14-36); Bilirubin,Total 0.5 mg/dl (0.2-1.3); Blood Urea Nitrogen 20 mg/dl (7-17); Calcium 9.3 mg/dl (8.4-10.2); Carbon Dioxide 33 mmol/L (22.0-30.0); Estimated Glomerular Filt Rate 61 ml/min (>60); GFR (African American) 73 ML/MIN (>60); Globulin 2.4 g/dL (1.3-3.2); Glucose 144 mg/dl (74-100); Total Protein,Serum 6.5 g/dl (6.3-8.2)
[2024-06-29 11:49] LABS: Basophils % 0.4 % (0.1-2.0); Eosinophils # 0.1 K/mm3 (0.0-0.4); Eosinophils % 1.6 % (0.1-12.0); Hematocrit 48.7 % (37.0-47.0); Hemoglobin 15.4 g/dL (12.2-16.2); Mean Corpuscular HGB Conc 31.6 g/dL (31.8-35.4); Mean Corpuscular Hemoglobin 26.2 pg (27.0-31.2); Mean Corpuscular Volume 82.8 fl (81-99); Mean Platelet Volume 10.5 fl (7.4-10.4); Monocytes # 0.5 K/mm3 (0.1-1.0); Monocytes % 8.6 % (1.7-9.3); Platelet Count 157 K/mm3 (142-424); Red Blood Count 5.88 M/mm3 (4.20-5.40); Red Cell Distribution Width 18.7 % (11.5-17.5); White Blood Count 5.6 K/mm3 (4.8-10.8)
== END 2024-06-29 23:59 | disposition home or self-care (01) ==
PROVIDERS: PCP Family Medicine; Visit Provider Colon & Rectal Surgery
DX: K62.5 Hemorrhage of anus and rectum (principal)
CPT/HCPCS: 36415; 80053; 85025

== ENCOUNTER 2024-07-20 09:35 | Outpatient (CLI) | payer MEDICARE, MEDICAID, SELFPAY ==
[2024-07-20 17:49] LABS: Basophils % 0.5 % (0.1-2.0); Eosinophils # 0.1 Kmm3 (0.0-0.4); Eosinophils % 2.4 % (0.1-12.0); Hematocrit 46.7 % (37.0-47.0); Hemoglobin 14.5 g/dL (12.2-16.2); Lymphocytes % 23.8 % (10-50); Mean Corpuscular Hemoglobin 26.1 pg (27.0-31.2); Mean Corpuscular Volume 84.1 fl (81-99); Monocytes # 0.4 K/mm3 (0.1-1.0); Monocytes % 9.9 % (1.7-9.3); Neutrophils # 2.7 K/mm3 (1.8-7.8); Neutrophils % 63.2 % (37.0-80.0); Nucleated Red Blood Cells # 0 10^3/uL; Nucleated Red Blood Cells % 0 %; Platelet Count 154 K/mm3 (142-424); Red Blood Count 5.55 M/mm3 (4.20-5.40); Red Cell Distribution Width 17.7 % (11.5-17.5); Red Cell Distribution Width-SD 53.1 fL; White Blood Count 4.3 K/mm3 (4.8-10.8)
[2024-07-20 18:06] LABS: Chloride 103 mmol/L (98-107); Potassium 4.2 mmoL/L (3.5-5.1); Sodium 141 mmol/L (136-145)
[2024-07-20 18:09] LABS: Alanine Aminotransferase 19 U/L (12-78); Albumin/Globulin Ratio 1.6 (1.1-1.8); Alkaline Phosphatase 102 U/L (38-126); Anion Gap 12.2 mEq/L (5-15); Aspartate Amino Transferase 28 U/L (14-36); Bilirubin,Total 0.5 mg/dl (0.2-1.3); Blood Urea Nitrogen 21 mg/dl (7-17); Carbon Dioxide 30 mmol/L (22.0-30.0); Cholesterol 197 mg/dl (140-200); Estimated Glomerular Filt Rate 54 ml/min (>60); GFR (African American) 65 ML/MIN (>60); Globulin 2.5 g/dL (1.3-3.2); Total Protein,Serum 6.5 g/dl (6.3-8.2); Triglycerides 233 mg/dl (30-150); VLDL Cholesterol 47 mg/dL (0-40)
[2024-07-20 18:10] LABS: Calcium 9.7 mg/dl (8.4-10.2); Chol/HDL Ratio 3.9 (1-3.5); Glucose 109 mg/dl (74-100); HDL Cholesterol 50 mg/dl (40-60)
[2024-07-20 18:21] LABS: Direct LDL Cholesterol 99.37 mg/dL (100-129)
[2024-07-20 18:46] LABS: Thyroid Stimulating Hormone 1.37 uIU/mL (0.465-4.68)
[2024-07-20 18:50] LABS: HIV Combo NEGATIVE (Negative)
[2024-07-20 19:56] LABS: Hemoglobin A1C 7.6 % (4.0-6.0)
[2024-07-20 20:01] LABS: 25-OH Vitamin D, Total 57.2 ng/mL (30-100)
[2024-07-20 20:42] LABS: Hepatitis C Ab Qual. W/ RFX NEGATIVE (Negative)
[2024-07-21 08:12] LABS: Creatinine,Urine Random 7 mg/dL (Not Estab.)
[2024-07-21 08:13] LABS: Microalbumin/Creatinine Ratio 107.1
== END 2024-07-20 23:59 | disposition home or self-care (01) ==
LOC: LAB.DROPOF 07-21 13:40
PROVIDERS: PCP Family Medicine; Visit Provider Family Medicine
DX: E03.9 Hypothyroidism, unspecified (principal); E11.9 Type 2 diabetes mellitus without complications; Z11.59 Encounter for screening for other viral diseases; E55.9 Vitamin D deficiency, unspecified
CPT/HCPCS: 80053; 80061; 82043; 82306; 82570; 83036; 84443; 85025; 86803; 87389

== ENCOUNTER 2025-01-26 10:15 | Outpatient (CLI) | payer MEDICARE, MEDICAID, SELFPAY ==
--- OUTSIDE RECORDS SUMMARY | 2025-01-26 10:29 | XMS_ITS | Clinical Summary ---
Author Organization [employer] ([place], [place], [place], [place], [place]) Address [address] [place] [address] Care Team Providers Care Automation Tech Name Role Phone Constantine Garland MD Primary Care Provider [phone]- [phone] Allergies Active Allergy Reactions Criticality Noted Date Comments Codeine Nausea And Vomiting 03/19/2024 Medications atorvastatin (LIPITOR) 80 MG tablet Take 1 tablet (80 mg total) by mouth nightly. 12/29/2023 Active carvediloL (COREG) 12.5 MG tablet Take 1 tablet (12.5 mg total) by mouth 2 (two) times daily. 01/02/2024 Active clopidogreL (PLAVIX) 75 mg tablet Take 1 tablet (75 mg total) by mouth daily. 01/31/2024 Active Jardiance 25 mg tablet Take 1 tablet (25 mg total) by mouth daily. 02/23/2024 Active furosemide (LASIX) 40 MG tablet Take 1 tablet (40 mg total) by mouth daily. 01/10/2024 Active Xarelto 15 mg tablet 01/05/2024 Active Rybelsus 3 mg tab Take 1 tablet by mouth daily. 02/22/2024 Active azelastine (ASTELIN) 137 mcg (0.1 %) nasal spray 2 sprays 2 (two) times daily. 01/22/2024 Active allopurinoL (ZYLOPRIM) 100 MG tablet Take 1 tablet (100 mg total) by mouth daily. Active Active Problems Problem Noted Date Diagnosed Date Atrial fibrillation Diabetes mellitus Hypertension Social History Tobacco Use Types Packs/Day Years Used Date Smoking Tobacco: Never Smokeless Tobacco: Never Tobacco Cessation:Counseling Given: Not Answered Alcohol Use Standard Drinks/Week Comments Not Currently 0 (1 standard drink = 0.6 oz pur e alcohol) Comments No Sex and Gender Information Value Date Recorded Sex Assigned at Not on file Legal Sex Female 5:24 PM CDT Gender Identity Not on file Sexual Orientation Not on file Last Filed Vital Signs Vital Sign Reading Time Taken Comments Blood Pressure 210/99 04/08/2024 10:02 AM EST Pulse 56 04/08/2024 10:02 AM EST Temperature 37.1 C (98.8 F) 04/08/2024 10:02 AM EST Respiratory Rate 16 04/08/2024 10:02 AM EST Oxygen Saturation 100% 04/08/2024 10:02 AM EST Inhaled Oxygen Concentration - - Weight 72.6 kg (160 lb) 04/08/2024 9:00 AM EST Height 154.9 cm (5' 1 ) 04/08/2024 9:00 AM EST Body Mass Index 30.23 04/08/2024 9:00 AM EST Plan of Treatment Health Maintenance Due Date Last Done Comments DXA SCAN 1946 Diabetic Kidney Health Evaluation (KED) 1946 Diabetic Eye Exam 1956 Depression Screening (12+) 1958 Hepatitis C Screening 1964 DTAP/TDAP/TD VACCINES (1 - Tdap) 1965 Shingles Vaccine (Zoster) (1 of 2) 1996 Pneumococcal 50+ years (2 of 2 - PCV) 02/14/2011 Respiratory Syncytial Virus (RSV) Adult or (1 - 1-dose 75+ series) 2021 Falls Risk Screening 03/24/2024 Medicare Initial AWV G0438 03/25/2024 Hemoglobin A1C 04/08/2024 COVID-19 VACCINE (1 - 2023- season) 2024 Influenza Vaccine (#1) 2024 01/09/2023, 2021 Tobacco Cessation Counseling and Screening (12+) 04/08/2025 04/08/2024 Medical Devices Implanted Type Area Primary Therapist Device Identifier Shelf Expiration Date Model / Serial / Lot Iol Uv Minalon +23.5 [id number] - [id number] Implanted:Qty: 1 on 03/25/2024 by Gabrielle Baker MD at [facility] IMPLANTS Right: Eye CARINE 02/06/2027 [id number] / [id number] / Iol Uv Clareon +23.0 [id number] - [id number] Implanted:Qty: 1 on 04/08/2024 by Gabrielle Baker MD at [facility] IMPLANTS Left: Eye CARINE 01/19/2027 [id number] / [id number] / Insurance [id number] ([facility]) [id number] [place] [id number] [facility] SHAJI [facility] MCR ADV DUAL COMPLETE Care Teams Automation Tech Relationship Specialty Start Date End Date Constantine Garland MD [address] [place] [address] [place] [id number] PCP - General Family Medicine 04/08/24
--- OUTSIDE RECORDS SUMMARY | 2025-01-26 10:29 | XMS_ITS | Referral Summary ---
Author Organization [employer] ([place], [place], [place], [place], [place]) Address [address] [place] [address] Care Team Providers Care Speech Teacher Name Role Phone Constantine Garland MD Primary Care Provider +1- [phone] Allergies Active Allergy Reactions Criticality Noted Date [...] 04/08/2024 9:00 AM EST Plan of Treatment Not on file Medical Devices Implanted Type Area Hanging Flags Decorator Device Identifier Shelf Expiration Date Model / Serial / Lot Iol Uv Clareon +23.5 [id number] - [id number] Implanted:Qty: 1 on 03/25/2024 by Gabrielle Baker MD at [facility] IMPLANTS Right: Eye CARINE 02/06/2027 [id number] / [id number] / Iol Uv Clareon +23.0 [id number] - [id number] Implanted:Qty: 1 on 04/08/2024 by Gabrielle Bakre MD at [facility] IMPLANTS Left: Eye CARINE 01/19/2027 [id number] / [id number] / Insurance [facility] MCR ADV DUAL COMPLETE Care Teams Speech Teacher Relationship Specialty Start Date End Date Constantine Garland MD [address] [place] [address] [place] [id number] PCP - General Family Medicine 04/08/24
--- NOTE | 2025-01-26 11:00 | CT_ITS ---
FINAL REPORT TECHNIQUE: Thin section axial images were obtained through the lungs using a low-dose technique per lung cancer screening protocol. Reconstruction images were obtained using the axial data. Exam was performed using dose reduction technique. CLINICAL HISTORY: lung cancer screening FORMER SMOKER QUIT 7 YEARS AGO 1PPD X58 YEARS FINDINGS: CTDLvol: 2.90 DLP: 92.47 Former smoker 58 pack year history Lungs: There is a 10 mm ground glass nodule in the left upper lobe seen on series 4, image 19. There is also a 10 mm ground glass nodule in the right upper lobe seen on series 4, image 29. There is evidence of prior granulomatous disease. The lungs are otherwise clear. Lymph nodes: No thoracic lymphadenopathy. Mediastinum: Heart size is normal. Pleura/pericardium: There is a very small pericardial effusion. There is no pleural effusion. Other: No acute abnormality in the upper abdomen. There are prominent coronary artery calcifications. IMPRESSION: Bilateral, 10 mm upper lobe ground glass nodules. S qualifier: Prominent coronary artery calcifications. Lung RADS: 2S Recommendation: 1 year follow-up. Reviewed, Interpreted and Dictated by Alyssa Martinez MD Transcribed by Michell Arias Authenticated and [facility]
== END 2025-01-26 23:59 | disposition home or self-care (01) ==
LOC: RAD 10:16
PROVIDERS: PCP Family Medicine; Visit Provider Family Medicine
DX: Z12.2 Encounter for screening for malignant neoplasm of respiratory organs (principal); Z87.891 Personal history of nicotine dependence; R91.8 Other nonspecific abnormal finding of lung field; J84.10 Pulmonary fibrosis, unspecified; I25.10 Atherosclerotic heart disease of native coronary artery without angina pectoris
CPT/HCPCS: 71271